=== PATIENT | female | born 1970 | race Asian ===

== ENCOUNTER 2021-05-06 13:53 | Outpatient (REF) | payer MEDICAID, OTHER, SELFPAY ==
--- NOTE | ~2021-05-06 | US_ITS ---
EXAMINATION: US PELVIS CLINICAL INFORMATION: AUB. COMPARISON: Done. TECHNIQUE: Ultrasound of the pelvis is performed using both transabdominal and transvaginal transducers along with Doppler. Transvaginal imaging is performed due to inadequate visualization transabdominally. FINDINGS: Uterus: The uterus is anteverted and measures 8.3 x 4.6 x 5.8 cm. There are some nabothian cysts present in the cervix. The double wall endometrial thickness is prominent at 12 mm. About the left lateral upper body of the uterus, there is a 2.1 x 2.8 x 2.0 cm hyperechoic structure with the appearance of a fibroid which appears to span between the subserosal, myometrial, and subendometrial regions on the provided imaging. Adnexa: There is normal color-flow to the left adnexa. There is no ovarian torsion. There is no pelvic ascites or fluid collection. Status post right oophorectomy. Left ovary measures 4.5 x 3.1 x 3.9 cm. Volume of 29 mL. There is a mildly complex septated cyst present without internal soft tissue component or internal vascularity measuring 3.7 x 2.1 x 2.8 cm in size. US/US pelvic and transvaginal IMPRESSION: Prominent endometrium at 1.2 cm in diameter. Left uterine body 2.7 cm largest dimension fibroid. Mildly complex left ovarian cyst measuring 3.7 cm in largest dimension.
== END 2021-05-06 13:54 | disposition home or self-care (01) ==
LOC: HO.HMGCX 13:53
PROVIDERS: PCP Family Medicine; Visit Provider Family Medicine
DX: N93.9 Abnormal uterine and vaginal bleeding, unspecified (principal)
CPT/HCPCS: 76830; 76856

== ENCOUNTER 2021-05-20 10:57 | Outpatient (REF) | payer MEDICAID, OTHER, SELFPAY ==
--- NOTE | ~2021-05-20 | CT_ITS ---
EXAMINATION: CT ABDOMEN WITHOUT AND WITH CONTRAST CLINICAL INFORMATION: Essential hypertension and hypokalemia. COMPARISON: None TECHNIQUE: Contiguous axial thin section helical images of the abdomen were performed before and after the administration of oral contrast and 85 mL of Omnipaque 350 intravenous contrast. The data set was reformatted in the coronal and sagittal planes and reviewed on an independent workstation. This CT examination was performed using dose optimization techniques as appropriate, variously including the following: *Automated exposure control *Adjustment of mA and/or kV according to patient size (this includes techniques or standardized protocols for targeted exams where dose is matched to indication/reason for exam; i.e. extremities or head) *Use of iterative reconstruction technique DLP: 278 mGy-cm FINDINGS: LUNG BASES: There are atelectatic changes in the left lung base. The heart size is normal. LIVER, GALLBLADDER, AND BILIARY TREE: The liver is normal size, contour and density. No focal lesion or intrahepatic ductal dilatation seen. The gallbladder is unremarkable. PANCREAS: Pancreas normal density and normal size. SPLEEN: Unremarkable. ADRENAL GLANDS AND KIDNEYS: There is a 1.7 cm left adrenal lesion 50 Hounsfield units. The right adrenal gland is normal. BOWEL LOOPS: There is moderate stool seen throughout the colon without distention. The small bowel loops are normal caliber. There is a calcified density in the right lower quadrant question appendicolith versus dense capsule in a small bowel loop. LYMPH NODES: Normal. VASCULAR: Unremarkable. BONES: No lytic or sclerotic process seen. CT/CT abdomen wo/w con IMPRESSION: 1.7 cm left adrenal lesion not benign. Recommend further evaluation with CT adrenal protocol. Moderate constipation. Radiopaque pill in the small bowel versus small appendicolith. Fleischner guidelines were followed.
[2021-05-20] MEDS: iohexoL 350 MG/ML 100 ML INFUS..BTL IV (11:51)
== END 2021-05-20 10:58 | disposition home or self-care (01) ==
LOC: HO.CT 10:57
PROVIDERS: Visit Provider Internal Medicine Nephrology
DX: E87.6 Hypokalemia (principal); I10 Essential (primary) hypertension
CPT/HCPCS: 74170; Q9967

== ENCOUNTER 2021-05-23 15:58 | Outpatient (REF) | payer MEDICAID, OTHER, SELFPAY ==
--- NOTE | ~2021-05-23 | MM_ITS ---
EXAMINATION: MM SCREENING DIGITAL BREAST TOMOSYNTHESIS, BILATERAL CLINICAL INFORMATION: Screening. Asymptomatic. The lifetime risk of breast cancer based on the Tyrer-Cuzick Model is 12.1%. COMPARISON: Mammography: None TECHNIQUE: Digital breast tomosynthesis is performed in both the craniocaudal and mediolateral oblique views along with computer-aided detection (CAD). Synthesized 2D images are generated from the tomosynthesis. FINDINGS: The breasts are heterogeneously dense, which may obscure small masses (ACR BI-RADS breast composition Category c). There are no significant masses, abnormal calcifications, or other abnormalities. MM/MM tomosynthesis screening BI IMPRESSION: No mammographic evidence of malignancy. ASSESSMENT: BI-RADS 1: Negative RECOMMENDATION: Routine annual mammography screening. This patient's information was entered into a reminder system with a target due date for their next mammogram.
== END 2021-05-23 15:59 | disposition home or self-care (01) ==
LOC: HO.MAMMO 15:58
PROVIDERS: Visit Provider Family Medicine
DX: Z12.31 Encounter for screening mammogram for malignant neoplasm of breast (principal)
CPT/HCPCS: 77063; 77067

== ENCOUNTER 2022-04-10 11:42 | Outpatient (REF) | payer MEDICAID, OTHER, SELFPAY ==
[2022-04-10 13:13] LABS: Hematocrit 36.4 % (37.0-47.0); Hemoglobin 12.5 g/dl (12.0-16.0); Mean Corpuscular HGB Conc 34.3 g/dl (31.0-35.0); Mean Corpuscular Hemoglobin 31.6 pg (27.0-33.0); Mean Corpuscular Volume 91.9 fL (80.0-98.0); Mean Platelet Volume 12.1 fL (9.4-12.3); Platelet Count 231 X10*3/uL (160-400); Red Blood Count 3.96 X10*6/uL (4.20-5.50); Red Cell Distribution Width 11.4 % (11.0-16.0); White Blood Count 4.9 X10*3/uL (4.8-10.8)
[2022-04-10 13:27] LABS: Estimated Average Glucose 88 mg/dL; Hemoglobin A1c % 4.7 %
[2022-04-10 14:10] LABS: Syphilis Screen Nonreactive (Nonreactive)
[2022-04-10 16:02] LABS: Alanine Aminotransferase 22 U/L (0-31); Albumin Level 4.3 g/dL (3.5-5.0); Alkaline Phosphatase 56 U/L (39-117); Anion Gap 16 (12-20); Aspartate Amino Transferase 25 U/L (5-31); Bilirubin Direct 0.2 mg/dL (0.0-0.5); Bilirubin Total 0.8 mg/dL (0.0-1.0); Blood Urea Nitrogen 15 mg/dL (9-16); Calcium 9.2 mg/dL (8.4-10.2); Carbon Dioxide 23 mmol/L (22-29); Chloride 103 mmol/L (96-108); Cholesterol 215 mg/dL; Estimated Glomerular Filt Rate > 60; Glucose Random 86 mg/dL (60-115); HDL Cholesterol 52 mg/dL; Iron 157 mcg/dL (30-160); LDL Cholesterol Calculated 148 mg/dl; Percent Iron Saturation 59 % (15-50); Potassium 3.9 mmol/L (3.3-5.1); Sodium 138 mmol/L (135-145); Total Iron Binding Capacity 265 mcg/dL (228-428); Triglycerides 77 mg/dL; Unsaturated Iron Binding 108 ug/dL
[2022-04-10 16:30] LABS: Ferritin 76 ng/mL (10-250); Folate 16.3 ng/mL (> or = 4.0); Free T4 (Free Thyroxine) 1.18 ng/dL (0.71-1.85); Thyroid Stimulating Hormone 1.65 uIU/mL (0.32-4.0); Vitamin B12 488 pg/mL (200-900); Vitamin D 25-OH Total 35.2 ng/mL (>30)
[2022-04-10 16:41] LABS: CT PCR NOT DETECTED (Not Detect.); NG PCR NOT DETECTED (Not Detect.)
[2022-04-13 08:13] LABS: ~HepC Num1 0.21 S/CO (0.00-0.79); ~Hepatitis C Antibody Nonreactive (Nonreactive)
[2022-04-13 08:23] LABS: HIV AB/AG Nonreactive (Nonreactive); HIV Num 1 0.08 S/CO (0.00-0.99)
== END 2022-04-10 11:43 | disposition home or self-care (01) ==
LOC: HO.LAB 11:42
PROVIDERS: PCP Family Medicine; Visit Provider Family Medicine
DX: Z00.00 Encounter for general adult medical examination without abnormal findings (principal); Z11.4 Encounter for screening for human immunodeficiency virus [HIV]; I10 Essential (primary) hypertension
CPT/HCPCS: 0353U; 80048; 80061; 80076; 82306; 82607; 82728; 82746; 83036; 83540; 84439; 84443; 85027; 86780; 86803; 87389

== ENCOUNTER 2022-06-15 11:17 | Outpatient (REF) | payer MEDICAID, OTHER, SELFPAY ==
--- NOTE | ~2022-06-15 | MM_ITS ---
EXAMINATION: MM SCREENING DIGITAL BREAST TOMOSYNTHESIS, BILATERAL CLINICAL INFORMATION: Screening. Asymptomatic. The lifetime risk of breast cancer based on the Tyrer-Cuzick Model is 10%. COMPARISON: Mammography: 05/23/2021 (baseline) TECHNIQUE: Digital breast tomosynthesis is performed in both the craniocaudal and mediolateral oblique views along with computer-aided detection (CAD). Synthesized 2D images are generated from the tomosynthesis. Additional left CC view is provided. FINDINGS: The breasts are heterogeneously dense, which may obscure small masses (ACR BI-RADS breast composition Category c). There are no significant masses, abnormal calcifications, or other abnormalities. No architectural abnormality. The axilla and skin contours are unremarkable. No significant changes. MM/MM tomosynthesis screening BI IMPRESSION: No mammographic evidence of malignancy. ASSESSMENT: BI-RADS 1: Negative RECOMMENDATION: Routine annual mammography screening. This patient's information was entered into a reminder system with a target due date for their next mammogram.
== END 2022-06-15 11:18 | disposition home or self-care (01) ==
LOC: HO.MAMMO 11:17
PROVIDERS: PCP Family Medicine; Visit Provider Family Medicine
DX: Z12.31 Encounter for screening mammogram for malignant neoplasm of breast (principal)
CPT/HCPCS: 77063; 77067

== ENCOUNTER 2022-08-14 13:31 | Outpatient (REF) | payer MEDICAID, OTHER, SELFPAY ==
--- NOTE | ~2022-08-14 | US_ITS ---
EXAMINATION: US PELVIS CLINICAL INFORMATION: Abnormal uterine bleeding. COMPARISON: CT abdomen 05/20/2021, ultrasound pelvis 05/06/2021. TECHNIQUE: Ultrasound of the pelvis is performed using both transabdominal and transvaginal transducers along with Doppler. Transvaginal imaging is performed due to inadequate visualization transabdominally. FINDINGS: Uterus: The uterus is anteverted and measures 8.4 x 4.2 x 6.7 cm. The double wall endometrial thickness is 0.9 mm. A left-sided fundal fibroid present measuring 2.6 x 2.6 x 2.2 cm (previously 2.1 x 2.7 x 2.0 cm). Nabothian cysts are present in the cervix. Adnexa: The right ovary has been removed. The left ovary measures 4.2 x 2.8 x 3.0 cm for a volume of 18.5 mL which includes a 1.9 cm benign ovarian cyst. No free pelvic fluid is seen. US/US pelvic and transvaginal IMPRESSION: 1. A 2.6 cm fundal fibroid is present, slightly larger than prior. 2. Benign left ovarian cyst needs no further followup. 3. The right ovary has been removed.
== END 2022-08-14 13:32 | disposition home or self-care (01) ==
LOC: HO.US 13:31
PROVIDERS: PCP Family Medicine; Visit Provider Family Medicine
DX: N93.9 Abnormal uterine and vaginal bleeding, unspecified (principal)
CPT/HCPCS: 76830; 76856

== ENCOUNTER 2023-05-18 13:30 | Outpatient (REF) | payer MEDICAID, OTHER, SELFPAY ==
[2023-05-18 16:17] LABS: Appearance Urine Cloudy; Color Urine Yellow; Glucose Urine UA Negative (Negative); Leukocyte Esterase Urine Moderate (2+) (Negative); Nitrite Urine Negative (Negative); UMIC TRIGGER UACC YES; Urine Blood Negative (Negative); Urine Ketones Negative (Negative); Urine Protein Negative (Neg-Trace)
[2023-05-18 16:30] LABS: Bacteria Urine Trace (None Seen); Hyaline Casts Urine 0-2 /LPF (0-2); RBC Urine 0-2 /HPF (0-2); UACC Culture Trigger YES
[2023-05-18 16:38] LABS: Hematocrit 36.6 % (37.0-47.0); Hemoglobin 12.6 g/dl (12.0-16.0); Mean Corpuscular HGB Conc 34.4 g/dl (31.0-35.0); Mean Corpuscular Hemoglobin 31.3 pg (27.0-33.0); Mean Platelet Volume 11.7 fL (9.4-12.3); Platelet Count 257 X10*3/uL (160-400); Red Blood Count 4.02 X10*6/uL (4.20-5.50); Red Cell Distribution Width 11.6 % (11.0-16.0); White Blood Count 5.5 X10*3/uL (4.8-10.8)
[2023-05-18 16:54] LABS: Estimated Average Glucose 91 mg/dL; Hemoglobin A1c % 4.8 % (<6.0)
[2023-05-18 17:32] LABS: Creatinine Urine 58.65 mg/dL; Microalbum/Creatinine Ratio Ur 102.3 ug/mg cr (<30)
[2023-05-18 17:54] LABS: Free T4 (Free Thyroxine) 0.96 ng/dL (0.71-1.85); Thyroid Stimulating Hormone 1.29 uIU/mL (0.32-4.0); Vitamin D 25-OH Total 38.1 ng/mL (>30)
[2023-05-18 18:51] LABS: Alanine Aminotransferase 42 U/L (0-31); Albumin Level 4.5 g/dL (3.5-5.0); Alkaline Phosphatase 77 U/L (39-117); Anion Gap 9 (12-20); Aspartate Amino Transferase 36 U/L (5-31); Bilirubin Direct 0.2 mg/dL (0.0-0.5); Bilirubin Total 0.6 mg/dL (0.0-1.0); Blood Urea Nitrogen 11 mg/dL (9-16); Calcium 9.6 mg/dL (8.4-10.2); Carbon Dioxide 33 mmol/L (22-29); Chloride 104 mmol/L (96-108); Cholesterol 240 mg/dL (<200); Estimated Glomerular Filt Rate > 60; Glucose Random 126 mg/dL (60-115); HDL Cholesterol 87 mg/dL (>40); LDL Cholesterol Calculated 138 mg/dL (<100); Potassium 2.9 mmol/L (3.3-5.1); Sodium 143 mmol/L (135-145); Total Protein 7.8 g/dL (6.5-8.0); Triglycerides 75 mg/dL (<150)
== END 2023-05-18 13:31 | disposition home or self-care (01) ==
LOC: HO.HHCL 13:30
PROVIDERS: Visit Provider Family Medicine
DX: I10 Essential (primary) hypertension (principal); R39.9 Unspecified symptoms and signs involving the genitourinary system
CPT/HCPCS: 36415; 80048; 80061; 80076; 81001; 82043; 82306; 82570; 83036; 84439; 84443; 85027; 87086

== ENCOUNTER 2023-05-24 12:59 | Outpatient (REF) | payer MEDICAID, OTHER, SELFPAY ==
[2023-05-24 16:25] LABS: Potassium 3.7 mmol/L (3.3-5.1)
[2023-05-25 12:48] LABS: Follicle Stimulating Hormone 61.5 mIU/mL; Lutenizing Hormone 26.3 mIU/mL
== END 2023-05-24 13:00 | disposition home or self-care (01) ==
LOC: HO.HHCL 12:59
PROVIDERS: Student in an Organized Health Care Education/Training Program; Visit Provider Family Medicine
DX: R39.9 Unspecified symptoms and signs involving the genitourinary system (principal); E87.6 Hypokalemia
CPT/HCPCS: 36415; 83001; 83002; 84132

== ENCOUNTER → 2023-06-17 11:30 | Outpatient (BNV) | payer SELFPAY | PROVIDERS: PCP Family Medicine; Visit Provider Radiology Diagnostic Radiology | DX: Z12.31 Encounter for screening mammogram for malignant neoplasm of breast (principal) | CPT/HCPCS: 77063; 77067 ==

== ENCOUNTER 2023-06-17 11:32 | Outpatient (REF) | payer MEDICAID, OTHER, SELFPAY ==
--- NOTE | ~2023-06-17 | MM_ITS ---
EXAMINATION: MM SCREENING DIGITAL BREAST TOMOSYNTHESIS, BILATERAL CLINICAL INFORMATION: Screening. Asymptomatic. COMPARISON: Mammography: This study is compared with prior exams dating back to TECHNIQUE: Digital breast tomosynthesis is performed in both the craniocaudal and mediolateral oblique views along with computer-aided detection (CAD). Synthesized 2D images are generated from the tomosynthesis. FINDINGS: The breasts are heterogeneously dense, which may obscure small masses (ACR BI-RADS breast composition Category c). There are no significant masses, abnormal calcifications, or other abnormalities. MM/MM tomosynthesis screening BI IMPRESSION: No mammographic evidence of malignancy. ASSESSMENT: BI-RADS BI-RADS 1 - Negative RECOMMENDATION: Routine annual mammography screening. 1 year F/U This examination should not preclude the clinical evaluation of a suspicious palpable abnormality. This patient's information was entered into a reminder system with a target due date for their next mammogram.
== END 2023-06-17 11:33 | disposition home or self-care (01) ==
LOC: HO.MAMMO 11:32
PROVIDERS: PCP Family Medicine; Visit Provider Family Medicine
DX: Z12.31 Encounter for screening mammogram for malignant neoplasm of breast (principal)
CPT/HCPCS: 77063; 77067

== ENCOUNTER 2023-08-30 10:14 | Outpatient (REF) | payer SELFPAY ==
[2023-08-30 12:56] LABS: HBS Num1 > 1000.00 mIU/mL (0-7.99); ~Hepatitis B Surface Antibody REACTIVE (Nonreactive)
[2023-08-31 17:47] LABS: Rubeola IgG (Measles) >300.00 AU/mL
[2023-09-01 23:18] LABS: TS Negative Control Passed; TS Panel A 0; TS Panel B 2; TS Positive Control Passed; TSpotTB Negative (Negative)
== END 2023-08-30 10:15 | disposition home or self-care (01) ==
LOC: HO.HHCL 10:14
PROVIDERS: Visit Provider Internal Medicine
DX: Z02.89 Encounter for other administrative examinations (principal)
CPT/HCPCS: 36415; 86481; 86706; 86735; 86762; 86765

== ENCOUNTER 2024-06-22 11:14 | Outpatient (REF) | payer MEDICAID, OTHER, SELFPAY ==
--- OUTSIDE RECORDS SUMMARY | 2024-06-22 13:54 | XMS_ITS | Clinical Summary ---
Author Organization [facility] Facility Address [address] [place] [id number] Care Team Providers Care Educational Technology Coordinator Name Role Phone Zhanna Hyman DO Primary Care Provider Unava ilable Allergies No known active allergies Medications amLODIPine (NORVASC) 10 MG tablet Take 10 mg by mouth 1 (one) time each day Active valsartan (DIOVAN) 320 MG tablet Take 320 mg by mouth 1 (one) time each day Active spironolactone (Aldactone) 50 MG tablet Take 1 tablet (50 mg total) by mouth 1 (one) time each day 30 tablet 11 07/06/2023 Active Active Problems Problem Noted Date Diagnosed Date Mass of left adrenal gland 06/05/2021 Hyperaldosteronism, not otherwise specified 03/09 Hypertension 11/01/2020 Hypertensive urgency 10/24/2020 Acute hypokalemia 10/24/2020 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 Overview (10/24/2020): Anginal equivalent Shoulder pain <Right side> 10/24/2020 Normocytic normochromic anemia 10/24/2020 Social History Tobacco Use Types Packs/Day Years Used Date Smoking Tobacco: Never Smokeless Tobacco: Never Tobacco Cessation:Counseling Given: No Alcohol Use Standard Drinks/Week Comments Yes 0 (1 standard drink = 0.6 oz pur e alcohol) Comments Unknown Sex and Gender Information Value Date Recorded Sex Assigned at Not on file Legal Sex Female 11:34 AM EDT Gender Identity Not on file Sexual Orientation Not on file Last Filed Vital Signs Vital Sign Reading Time Taken Comments Blood Pressure 132/81 06/04/2022 4:19 PM EDT Pulse 80 06/04/2022 4:19 PM EDT Temperature - - Respiratory Rate - - Oxygen Saturation 99% 11/01/2020 11:55 AM EDT Inhaled Oxygen Concentration - - Weight 69.4 kg (153 lb) 06/04/2022 4:19 PM EDT Height 170.2 cm (5' 7 ) 03/27/2021 2:35 PM EST Body Mass Index 23.96 03/27/2021 2:35 PM EST Plan of Treatment Health Maintenance Due Date Last Done Comments Breast Cancer Screening 1970 Hepatitis B Vaccine (1 of 3 - 19+ 3-dose series) 06/07 Pneumococcal Vaccine: 50+ Years (1 of 2 - PCV) 992 Colorectal Cancer Screening: Annual FOBT 2021 Colorectal Cancer Screening: Colonoscopy 2021 Colorectal Cancer Screening: Sigmoidoscopy 2021 Influenza Vaccine (Season Ended) 2024 Care Teams Educational Technology Coordinator Relationship Specialty Start Date End Date Zhanna Hyman DO PCP - General Family Medicine 11/01/20
--- OUTSIDE RECORDS SUMMARY | 2024-06-22 13:54 | XMS_ITS | Clinical Summary ---
Author Organization [employer] Address [address] [place] [address] 7 [place] [address] Care Team Providers Care Beam Doffer Name Role Phone Zhanna Hyman DO Primary Care Provider [phone] Medications spironolactone (Aldactone) 50 MG tablet Take 50 mg by mouth in the morning. 04/01/2022 Active valsartan (Diovan) 320 MG tabletIndications :Essential hypertension Take 1 tablet (320 mg) by mouth in the morning. 90 tablet 3 05/18/2023 Active amLODIPine (Norvasc) 10 MG tabletIndications :Essential hypertension Take 1 tablet (10 mg) by mouth in the morning. 90 tablet 3 05/18/2023 Active Active Problems Problem Noted Date Diagnosed Date Healthcare maintenance 05/18/2023 Assessment & Plan (05/18/2023 1:50 PM EDT): -pt is allergic to flu vaccine -she declines COVID vaccine -she declines Tdap -encouraged shingrix vaccine -Hep A/B immune -T-spot negative OCT 2020 -PAP nml/HPV neg JULY 2021 -mammo BIRADS 06 JUN 2022->referred for repeat -iFOBT neg APR 2022->check cologuard prior to next visit -fasting labs nml APR 2022 -STI/HIV screening negative APR 2022 SK (seborrheic keratosis) 05/18/2023 Assessment & Plan (05/18/2023 1:44 PM EDT): Continue cryotherapy with derm -f/u w/ [facility] derm as scheduled Renal artery stenosis 06/24/2022 Assessment & Plan (05/18/2023 1:42 PM EDT): -renal doppler with mild R CHRISTY -f/u with renal as scheduled, due next mos Left adrenal mass 06/05/2021 Hyperaldosteronism 03/27/2021 Essential hypertension 11/01/2020 Assessment & Plan (05/18/2023 1:42 PM EDT): BP slightly elevated w/ reported nml home BP readings -cont spironolactone, norvasc and valsartan daily -cont home BP monitoring, advised contact [facility] if readings elevated -Cr/GFR nml APR 2022 with mild urine microalbumin FEB 2021, repeat prior to next visit -s/p optho SEP 2021 at [facility] for repeat in 2 years Resolved Problems Problem Noted Date Diagnosed Date Resolved Date Abnormal uterine bleeding 05/18/2023 Assessment & Plan (05/18/2023 12:32 PM EDT): No recurrent sx -pelvic US w/ larger fundal fibroid and benign L ovarian cyst AUG 2022 -reviewed results w/ pt and -advised contact [facility] if sx recur Multiple nevi 05/18/2023 05/18/2023 UTI symptoms 05/18/2023 09/14/2023 Assessment & Plan (05/18/2023 1:49 PM EDT): Recurrent sx, improved with nocturia, improved with home measures, ?OAB vs related to perimenopausal atrophy -provided reassurance -check UA and urine culture to r/o UTI -consider trial vaginal estrogen if sx recur -advised return to clinic if sx recur Acute hypokalemia 10/24/2020 07/22/2022 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 I have donna torres 12/21/[address] you li ve. Do you have problems with any of the following? None of the above 12/21/2022 Food Insecurity Answer Date Recorded Within the past 12 months, y ou worried that your food would run out before you got money to buy more: Never True 12/21/2022 Within the past 12 months,th e food you bought just didn't last and you didn't have enough money to get more: Never True Transportation Answer Date Recorded In the past 12 months, has l ack of transportation kept you from medical appts, meetings, work or from getting things needed for daily living? No 12/21/2022 Utilities Answer Date Recorded In the past 12 months, has t he electric, gas, oil or water company threatened to shut off services in your home? No 12/21/2022 Depression Answer Date Recorded Patient Health Questionnaire-2 Score 0 07/22/2022 Comments Unknown Sex and Gender Information Value Date Recorded Sex Assigned at Female 01/05/2022 10:39 AM EDT Legal Sex Female 10:39 AM EDT Gender Identity Female 01/05/2022 10:39 AM EDT Sexual Orientation Straight 01/05/2022 10 :39 AM EDT Last Filed Vital Signs Vital Sign Reading Time Taken Comments Blood Pressure 134/88 09/14/2023 1:44 PM EDT Pulse 80 09/14/2023 9:56 AM EDT Temperature 36.1 ??C (96.9 ??F) 09/14/2023 9:56 AM ED T Respiratory Rate 18 09/14/2023 9:56 AM EDT Oxygen Saturation 99% 09/14/2023 9:56 AM EDT Inhaled Oxygen Concentration - - Weight 77.2 kg (170 lb 1.6 oz) 09/14/2023 9:56 A M EDT Height 170.2 cm (5' 7 ) 09/14/2023 9:56 AM EDT Body Mass Index 26.64 09/14/2023 9:56 AM EDT Plan of Treatment Health Maintenance Due Date Last Done Comments CT Colonography 1972 Colonoscopy 1972 Sigmoidoscopy 1972 Alcohol/Substance Use Screening 1984 Family Planning (PISQ) 06/08/1987 Hepatitis B Vaccines (1 of 3 - 19+ 3-dose series) 06/08/1991 Pneumococcal Vaccine: 50+ Years (1 of 1 - PCV) 2022 Zoster Vaccines (1 of 2) 2022 FIT 04/22/2023 04/22/2022 FOBT 04/22/2023 04/22/2022 Depression Screening 07/23/2023 07/22/2022, 07/23/19 23 SDOH Screening 07/23/2023 07/22/2022 COVID-19 Vaccine ( - season) 2023 Influenza Vaccine (#1) 2023 Pap Smear 08/01/2024 08/01/2021 Tobacco Screening 11/24/2024 11/25/2023 Mammogram 06/16/2025 06/17/2023, 06/06, 06/15/2022, Additional history exists Colorectal Cancer Screening 2026 FIT DNA/Cologuard 2026 06/08/2023 Cervical Cancer Screening 08/01/2026 HPV/Cotest 08/01/2026 08/01/2021 Lipid Panel 05/17/2028 05/18/2023, 02/0 05/2022, 02/10/2021 DTaP/Tdap/Td Vaccines (2 - Td or Tdap) 09/13/2033 09/14/2023 RSV Patients and Patients Aged 60 years or older (1 - 1-dose 75+ series) 06/08/2047 HIV Screening Completed 04/10/2022, 02/10/2021 Hepatitis C Screening Completed 04/10/2022, 021 HIB Vaccines Aged Out No longer eligi ble based on patient's age to complete this topic HPV Vaccines Aged Out No longer eligi ble based on patient's age to complete this topic Hepatitis A Vaccines Aged Out No long er eligible based on patient's age to complete this topic IPV Vaccines Aged Out No longer eligi ble based on patient's age to complete this topic Meningococcal Vaccine Aged Out No iban narciso eligible based on patient's age to complete this topic RSV under 20 months Aged Out No longe r eligible based on patient's age to complete this topic Rotavirus Vaccines Aged Out No longer eligible based on patient's age to complete this topic Procedures Procedure Name Priority Date/Time Associated Diagnosis Comments BI MAMMOGRAM SCREENING TOMOSYNTHESIS BILATERAL Routine 06/17/2023 11:50 AM EDT LAB COLOGUARD?? COLON CANCER SCREEN Routine 06/08/2023 9:58 AM EDT Encounter for screening for malignant neoplasm of colon LIPID PANEL, STANDARD Routine 05/18/2023 1:34 PM EDT Essential hypertension FECAL GLOBIN BY IMMUNOCHEMISTRY Routine 04/22/2022 12:00 AM EST HEPATITIS C ANTIBODY REFLEX Routine 04/10/2022 12:27 PM EST HIV ANTIBODY/ANTIGEN ([place] DPH) Routine 04/10/2022 12:27 PM EST HPV MRNA E6/E7 REFLEX TO HPV 16, 18/45 Routine 08/01/2021 10:31 AM EDT THINPREP IMAGING SYSTEM PAP Routine 08/01/2021 10:31 AM EDT from Last 3 Months or Most Recently Relevant to Health Maintenance Results * BI Mammogram Screening Tomosynthesis Bilateral (06/17/2023 11:50 AM EDT) Anatomical Region Laterality Modality Breast Bilateral Mammography 06/17/2023 11:5 0 AM EDT Narrative 07/13/2023 11:04 AM EDT ? [facility] ? [address] ?[place] [address] ? Mammography Report ? Signed ? Patient: Godbout,Oma ?MR#: [id number] ? : 1970 ?Acct:[id number] ? Age/Sex: 53 / F ?ADM Date: 06/17/23 ? Loc: HO.MAMMO ? Attending Dr: Zhanna Hyman DO ? Ordering Physician: Zhanna Hyman DO ?Results: 1N ?? egative ? Date of Service: 06/17/23 ?Follow Up: 1 Year From Orig ?? inal Mammogram ? Procedure(s): MM tomosynthesis screening BI ?? Accession Number(s): [id number] ? cc: Zhanna Hyman DO ? EXAMINATION: ?? MM SCREENING DIGITAL BREAST TOMOSYNTHESIS, BILATERAL ? CLINICAL INFORMATION: ? Screening. Asymptomatic. ? COMPARISON: ?? Mammography: This study is compared with prior exams dating back to ? TECHNIQUE: ?? Digital breast tomosynthesis is performed in both the craniocaudal and ?? mediolateral oblique views along with computer-aided detection (CAD). ?? Synthesized 2D images are generated from the tomosynthesis. ? FINDINGS: ?? The breasts are heterogeneously dense, which may obscure small masses ?? (ACR BI-RADS breast composition Category c). ? There are no significant masses, abnormal calcifications, or other ?? abnormalities. ? MM/MM tomosynthesis screening BI ?? IMPRESSION: ?? No mammographic evidence of malignancy. ? ASSESSMENT: ? BI-RADS BI-RADS 1 - Negative ? RECOMMENDATION: ?? Routine annual mammography screening. ? 1 year F/U ? This examination should not preclude the clinical evaluation of a ?? suspicious palpable abnormality. ? This patient's information was entered into a reminder system with a ?? target due date for their next mammogram. ? Dictated By: ?Marge Fenton MD ? Signed By: ?<Electronically signed by Marge Fenton MD in OV> ? 07/13/23 1100 ? DD/ 1150 ? TD/TT: ? Senior Software Development Manager: ? Procedure Note Diana, Image - 07/13/2023 [facility] [address] [place] [address] Mammography Report Signed Patient: Lizzeth Rodríguez#: [id number] : 1970Acct:[id number] Age/Sex: 53 / FADM Date: 06/17/23 Loc: HO.MAMMO Attending Dr: Zhanna Hyman DO Ordering Physician: Zhanna Hymanults: 1N egative Date of Service: 06/17/23Follow Up: 1 Year From Orig inal Mammogram Procedure(s): MM tomosynthesis screening BI Accession Number(s): [id number] cc: Zhanna Hyman DO EXAMINATION: MM SCREENING DIGITAL BREAST TOMOSYNTHESIS, BILATERAL CLINICAL INFORMATION: Screening. Asymptomatic. COMPARISON: Mammography: This study is compared with prior exams dating back to TECHNIQUE: Digital breast tomosynthesis is performed in both the craniocaudal and mediolateral oblique views along with computer-aided detection (CAD). Synthesized 2D images are generated from the tomosynthesis. FINDINGS: The breasts are heterogeneously dense, which may obscure small masses (ACR BI-RADS breast composition Category c). There are no significant masses, abnormal calcifications, or other abnormalities. MM/MM tomosynthesis screening BI IMPRESSION: No mammographic evidence of malignancy. ASSESSMENT: BI-RADS BI-RADS 1 - Negative RECOMMENDATION: Routine annual mammography screening. 1 year F/U This examination should not preclude the clinical evaluation of a suspicious palpable abnormality. This patient's information was entered into a reminder system with a target due date for their next mammogram. Dictated By: Marge Fenton MD Signed By: <Electronically signed by Marge Fenton MD in OV> 07/13/23 1100 DD/ 1150 TD/TT: Senior Software Development Manager: us Zhanna Hyman DO IMG BI PROCEDURES Final Resu lt * Cologuard?? colon cancer screening (06/08/2023 9:58 AM EDT) Cologuard Result Negative Negative 06/13/19 5:06 PM EDT [facility] (CLIA #:[id number]) Comment: NEGATIVE TEST RESULT. A negative Cologuard result indicates a low likelihood that a colorectal cancer (CRC) or advanced adenoma (adenomatous polyps with more advanced pre-malignant features) ??is present. The chance that a person with a negative Cologuard test has a colorectal cancer is less than 1 in 1500 (negative predictive value >99.9%) or has an ??advanced adenoma is less than ??5.3% (negative predictive value 94.7%). These data are based on a prospective cross-sectional study of 10,000 individuals at average risk for colorectal cancer who were screened with both Cologuard and colonoscopy. (Juana Sánchez al, N Engl J Med 2014;370(14):1286- 1297) The normal value (reference range) for this assay is negative. COLOGUARD RE-SCREENING RECOMMENDATION: Periodic colorectal cancer screening is an important part of preventive healthcare for asymptomatic individuals at average risk for colorectal cancer. ??Following a negative Cologuard result, the [place] Cancer Society and U.S. Multi-Society Task Force screening guidelines recommend a Cologuard re-screening interval of 3 years. References: [place] Cancer Society Guideline for Colorectal Cancer Screening: https://www.cancer.org/cancer/twkyf-xdynmo-tvnidj/mjtmodfvw-kxzixayyh-uirsjpj/ac s-rec ommendations.html.; Dariel DK, Trung CR, Aubree MedinaK, Colorectal Cancer Screening: Recommendations for Physicians and Patients from the U.S. Multi-Society Task Force on Colorectal Cancer Screening , Am J Gastroenterology 2017; 112:1550-4036. TEST DESCRIPTION: Composite algorithmic analysis of stool DNA-biomarkers with hemoglobin immunoassay. ?? Quantitative values of individual biomarkers are not reportable and are not associated with individual biomarker result reference ranges. Cologuard is intended for colorectal cancer screening of adults of either sex, 45 years or older, who are at average-risk for colorectal cancer (CRC). Cologuard has been approved for use by the U.S. FDA. The performance of Cologuard was established in a cross sectional study of average-risk adults aged 50-84. Cologuard performance in patients ages 45 to 49 years was estimated by sub-group analysis of near-age groups. Colonoscopies performed for a positive result may find as the most clinically significant lesion: colorectal cancer [4.0%], advanced adenoma (including sessile serrated polyps greater than or equal to 1cm diameter) [20%] or non- advanced adenoma [31%]; or no colorectal neoplasia [45%]. These estimates are derived from a prospective cross-sectional screening study of 10,000 individuals at average risk for colorectal cancer who were screened with both Cologuard and colonoscopy. (Juana Sánchez al, N Engl J Med 2014;370(14):7199-5636.) Cologuard may produce a false negative or false positive result (no colorectal cancer or precancerous polyp present at colonoscopy follow up). A negative Cologuard test result does not guarantee the absence of CRC or advanced adenoma (pre-cancer). The current Cologuard screening interval is every 3 years. ([place] Cancer Society and U.S. Multi-Society Task Force). Cologuard performance data in a 10,000 patient pivotal study using colonoscopy as the reference method can be accessed at the following location: www.[employer].Play Meg[employer]one/results. Additional description of the Cologuard test process, warnings and precautions can be found at www.[employer]rd.com. Stool specimen (specimen) 06/08/2023 9:58 AM EDT 06/09/2023 2:31 PM EDT Zhanna Hyman DO LAB MOLECULAR DIAGNOSTICS OR DERABLES Final Result [facility] (CLIA #:[id number]) [place] [address], * (ABNORMAL) Lipid Panel, Standard (05/18/2023 1:34 PM EDT) Triglycerides 75 <150 mg/dL [facility] Comment:Desirable Triglyceri de: less than 150 mg/dLBorderline High Triglyceride 150-199 mg/dLHigh Triglyceride: 200-499 mg/dLVery High Triglyceride: greater than or equal to 5OO mg/dL Cholesterol 240(H) <200 mg/dL [facility] Comment:Desirable Cholestero l: less than 200 mg/dLBorderline High Cholesterol: 200-239 mg/dLHigh Cholesterol: greater than 239 mg/dL LDL Cholesterol Calculated 138(H) <100 mg/dL [facility] Comment:Desirable LDL: less than 100 mg/dLNear Optimal/Above Optimal LDL: 110- 129 mg/dLBorderline High LDL: 130-159 mg/dLHigh LDL: 160-189 mg/dLVery High LDL: greater than or equal to 190 mg/dL HDL Cholesterol 87 >40 mg/dL [facility] Comment:Desirable HDL: great er than 40 mg/dL Note: This HDL assay may give artificially low results in patients with liver disease. Blood Venous blood specimen / Unknown 05/18/2023 1:34 PM EDT 05/18/2023 4:06 PM EDT Zhanna Hyman DO LAB BLOOD ORDERABLES Final R esult [facility] [address] [place] [address] [phone] * Fecal Globin by Immunochemistry (04/22/2022 12:00 AM EST) Fecal Globin By Immunochemistry SEE NOTE Exam18 [place] [facility] Comment: ??FECAL GLOBIN BY IMMUNOCHEMISTRY ?Micro Number: ?[id number] ??Test Status: ? Final ??Specimen Source: ?? Not given ??Specimen Quality: ??Adequate ??Fecal Globin: ?Not Detected 04/22/2022 04/28/2022 10: 11 PM EST Narrative [facility] - 04/29/2022 10:56 AM EST FASTING: UNKNOWN Zhanna Hyman DO LAB BODY FLUIDS AND STOOLS O RDERABLES Final Result Performing Organization Address City/[facility] Co de Phone Number [employer] [address] [place] [address], [place] [address] Exam18 [place] [facility] [address] [place] [address], (Nl2) [place] [address] * Hepatitis C Antibody Reflex (04/10/2022 12:27 PM EST) Pathologist [facility] Hepatitis C Antibody Nonreactive Nonreactive [facility] Comment:Antibodies to HCV no t detected; does not exclude early acuteHCV infection. 04/10/2022 12:2 7 PM EST 04/10/2022 12:27 PM EST [facility] External Provider LAB BLO OD ORDERABLES Final Result Performing Organization Address City/[facility]/ZIP Co de Phone Number [facility] [address] [place] [address] [phone] * HIV Ab/Ag (DEVANTE ARMENDARIZ) (04/10/2022 12:27 PM EST) Pathologist [facility] HIV AB/AG Nonreactive Nonreactive [facility] Comment:HIV-1 p24 Ag and/or HIV-1/HIV-2 Ab not detected.A test result that is nonreactive does not exclude thepossibility of exposure to or infection with HIV-1 and/orHIV-2. Nonreactive results in this assay for individualswith prior exposure to HIV-1 and/or HIV-2 may be due toantigen and antibody levels that are below the limit ofdetection of this assay.The Cervantes Reel Winder HIV Ag/Ab Combo assay result andsupplemental assay results should be interpreted inconjunction with the patient's clinical presentation,history and other laboratory results. If the results areinconsistent with clinical evidence, additional testing issuggested to confirm the result. 04/10/2022 12:2 7 PM EST 04/10/2022 12:27 PM EST us [facility] External Provider LAB BLO OD ORDERABLES Final Result [facility] [address] [place] [address] [phone] * THINPREP TIS PAP (08/01/2021 10:31 AM EDT) Clinical Information: None given [facility] COMMENT SEE COMMENT [facility] Comment: EXPLANATORY NOTE: ? The Pap is a screening test for cervical cancer. It is ?? not a diagnostic test and is subject to false negative ?? and false positive results. It is most reliable when a ?? satisfactory sample, regularly obtained, is submitted ?? with relevant clinical findings and history, and when ?? the Pap result is evaluated along with historic and ?? current clinical information. ?? COMMENT: SEE COMMENT [facility] Comment: This case could not be evaluated with computer assisted technology. The slide was manually screened according to routine procedures. Seamer : SEE COMMENT [facility] Comment: WAC, CT(ASCP) CT screening location: [address] ??[address] Interpretation/R esult: Negative for intraepithelial lesion or malignancy. [facility] LMP: NONE GIVEN [facility] Prev. BX: NONE GIVEN [facility] Prev. PAP: NONE GIVEN [facility] SOURCE: None given [facility] Statement Of Adequacy: SEE COMMENT [facility] Comment: Satisfactory for evaluation. Endocervical/transformation zone component present. Partially obscuring inflammation Age and/or menstrual status not provided 08/01/2021 10:3 1 AM EDT Zhanna Hyman DO LAB PATHOLOGY ORDERABLES Fin al Result Performing Organization Address [facility] Co de Phone Number [facility] [address] * HPV mRNA E6/E7 REFLEX TO HPV 16, 18/45 (08/01/2021 10:31 AM EDT) HPV nRNA E6/E7 Not Detected Not Detected [facility] Comment: Methodology: Tooth Cutter Contact Wheel-Mediated Amplification This assay detects E6/E7 viral messenger RNA (mRNA) from 14 high-risk HPV types (16,18,31,33,35,39,45,51,52,56,58,59,66,68). ? Cervical sources are required for HPV testing. If a vaginal source from a patient who has had a total hysterectomy with removal of cervix was ?? submitted, please contact the testing laboratory for alternative testing options. ?? For additional information, please refer to http://education.iTw[employer]ie/faq/EPR636t1 (This link if provided for information/ educational purposes only.) 08/01/2021 10:3 1 AM EDT Zhanna Hyman DO LAB CYTOLOGY ORDERABLES Yasmin l Result Performing Organization Address [facility] de Phone Number [facility] [address] from Last 3 Months or Most Recently Relevant to Health Maintenance Insurance [employer] FULL Care Teams Beam Doffer Relationship Specialty Start Date End Date Zhanna Hyman DO [address] [place] [phone] PCP - General Family Medicine 11/13/20
--- OUTSIDE RECORDS SUMMARY | 2024-06-22 13:54 | XMS_ITS | Encounter Summary ---
Author Organization [employer] Address [address] [place] [address] [address] [place] [address] Care Team Providers Care Fiberglass Dowel Drawing Operator Name Role Phone Zhanna Hyman DO Primary Care Provider [phone] Encounter Details Date Type Department Care Team (Late st Contact Info) Description 04/21/2022 Orders Only [facility] [address] [place], [place] [phone] Zhanna Cardoza LPN Social History Tobacco Use Types Packs/Day Years Used Date Smoking Tobacco: Never Assessed Comments Unknown Sex and Gender Information Value Date Recorded Sex Assigned at Female 01/05/2022 10:39 AM EDT Legal Sex Female 10:39 AM EDT Gender Identity Female 01/05/2022 10:39 AM EDT Sexual Orientation Straight 01/05/2022 10 :39 AM EDT documented as of this encounter Plan of Treatment Not on file documented as of this encounter Visit Diagnoses Not on filedocumented in this encounter Care Teams Fiberglass Dowel Drawing Operator Relationship Specialty Start Date End Date Zhanna Hyman DO [address] [place] [phone] PCP - General Family Medicine 11/13/20 documented as of this encounter
--- OUTSIDE RECORDS SUMMARY | 2024-06-22 13:54 | XMS_ITS | Encounter Summary ---
Author Organization [facility] Address [address] [facility] [address] [place] [address] Phone Care Team Providers Care Career Coordinator Name Role Phone Zahnna Hyman DO Primary Care Provider Unava ilable Encounter Details Date Type Department Care Team (Late st Contact Info) Description 06/12/2021 Telephone [facility] [address] [facility] [address] [place] [address] Reji Dubon MD [address] [facility] [address] [place] [address] Social History Tobacco Use Types Packs/Day Years Used Date Smoking Tobacco: Never Smokeless Tobacco: Never Alcohol Use Standard Drinks/Week Comments Yes 0 (1 standard drink = 0.6 oz pur e alcohol) Comments Unknown Sex and Gender Information Value Date Recorded Sex Assigned at Not on file Legal Sex Female 11:34 AM EDT Gender Identity Not on file Sexual Orientation Not on file documented as of this encounter Miscellaneous Notes * Telephone Encounter - Gracie Grover - 06/12/2021 1:43 PM EDT Pt called, the pharmacy is saying they never received the script for spironolactone. Please resend to [facility] pharmacy Thank you documented in this encounter Plan of Treatment Not on file documented as of this encounter Visit Diagnoses Not on filedocumented in this encounter Care Teams Career Coordinator Relationship Specialty Start Date End Date Zhanna Hyman DO PCP - General Family Medicine 11/01/20 documented as of this encounter
== END 2024-06-22 11:15 | disposition home or self-care (01) ==
LOC: HO.MAMMO 11:14
PROVIDERS: PCP Family Medicine; Visit Provider Family Medicine
DX: Z12.31 Encounter for screening mammogram for malignant neoplasm of breast (principal)
CPT/HCPCS: 77063; 77067

== ENCOUNTER → 2024-06-22 11:30 | Outpatient (BNV) | payer SELFPAY | PROVIDERS: PCP Family Medicine; Visit Provider Internal Medicine | DX: Z12.31 Encounter for screening mammogram for malignant neoplasm of breast (principal) | CPT/HCPCS: 77063; 77067 ==

== ENCOUNTER → 2024-08-10 13:00 | Outpatient (BNV) | payer SELFPAY | PROVIDERS: PCP Family Medicine; Visit Provider Internal Medicine | DX: R92.331 Mammographic heterogeneous density, right breast (principal) | CPT/HCPCS: 77061; 77065 ==

== ENCOUNTER 2024-08-10 13:01 | Outpatient (REF) | payer SELFPAY ==
--- NOTE | ~2024-08-10 | MM_ITS ---
EXAMINATION: MM DIAGNOSTIC DIGITAL BREAST TOMOSYNTHESIS, RIGHT CLINICAL INFORMATION: Call back from screening for asymmetry in the superior right breast on MLO view. COMPARISON: Mammography: [facility] on PACS TECHNIQUE: Digital breast tomosynthesis is performed in both the craniocaudal and mediolateral oblique views along with computer-aided detection (CAD). Synthesized 2D images are generated from the tomosynthesis. FINDINGS: The breasts are heterogeneously dense, which may obscure small masses (ACR BI-RADS breast composition Category c). Previously seen asymmetry in the superior right breast posterior depth on MLO view does not persist on additional imaging projections and likely represented overlapping breast tissue. There are no significant masses, abnormal calcifications, or other abnormalities. MM/MM tomosynthesis added views R IMPRESSION: No mammographic evidence of malignancy. ASSESSMENT: BI-RADS BI-RADS 1 - Negative RECOMMENDATION: 1 year F/U Results were provided to the patient at time of visit by the technologist. This patient's information was entered into a reminder system with a target due date for their next mammogram. Electronically signed by: Kena Cutler DO 08/10/2024 01:25 PM EDT
--- OUTSIDE RECORDS SUMMARY | 2024-08-10 15:06 | XMS_ITS | Clinical Summary ---
Author Organization [facility] Facility Address [address] [place] [address] Care Team Providers Care Vice President Consulting Services Name Role Phone Zhanna Hyman DO Primary [...] Influenza Vaccine (Season Ended) 2024 Care Teams Vice President Consulting Services Relationship Specialty Start Date End Date Zhanna Hyman DO PCP - General Family Medicine 11/01/20
== END 2024-08-10 13:02 | disposition home or self-care (01) ==
LOC: HO.MAMMO 13:01
PROVIDERS: PCP Family Medicine; Visit Provider Family Medicine
DX: N64.89 Other specified disorders of breast (principal)
CPT/HCPCS: 77061; 77065

== ENCOUNTER 2024-11-10 11:45 | Outpatient (REF) | payer MEDICAID, SELFPAY ==
--- OUTSIDE RECORDS SUMMARY | 2024-11-10 10:30 | XMS_ITS | Encounter Summary ---
Author Organization [employer] Address [address] [place] [address] [address] [place] [address] Care Team Providers Care Chief Internal Auditor Name Role Phone Zhanna Hyman DO Primary Care Provider [phone] Encounter Details Date Type Department Care Team ([facility] st Contact Info) Description 11/10/2024 10:30 AM EDT Office Visit [facility] [address] [place], [place] [phone] Zhanna Hyman DO [address] [place], [place] [phone] Essential hypertension (Primary Dx); Renal artery stenosis (CMS/HCC); Elevated LFTs; Healthcare maintenance; Dietary counseling; Exercise counseling; Menopausal symptoms; Overactive bladder; Hair loss Social History Tobacco Use Types Packs/Day Years Used Date Smoking Tobacco: Never Passive Smoke Exposure: Never Smokeless Tobacco: Never Alcohol Use Standard Drinks/Week Comments Never 0 (1 standard drink = 0.6 oz pur e alcohol) Depression Answer Date Recorded Patient Health Questionnaire-9 Score 1 11/10/2024 Patient Health Questionnaire-9 Score 1 11/10/2024 Last PHQ-9: Questionnaire Data Not on file 0 11/10/2024 Housing Stability Answer Date Recorded What is [...] Date Recorded Patient Health Questionnaire-2 Score 0 11/10/2024 Comments Unknown Sex and Gender Information Value Date Recorded Sex Assigned at Female 01/05/2022 10:39 AM EDT Legal Sex Female 10:39 AM EDT Gender Identity Female 01/05/2022 10:39 AM EDT Sexual Orientation Straight 01/05/2022 10 :39 AM EDT documented as of this encounter Last Filed Vital Signs Vital Sign Reading Time Taken Comments Blood Pressure 142/90 11/10/2024 10:52 AM EDT Pulse 72 11/10/2024 10:52 AM EDT Temperature 36.9 C (98.5 F) 11/10/2024 10:52 AM EDT Respiratory Rate 20 11/10/2024 10:52 AM EDT Oxygen Saturation 97% 11/10/2024 10:52 AM EDT Inhaled Oxygen Concentration - - Weight 76.8 kg (169 lb 4 oz) 11/10/2024 10:52 AM EDT Height 170.2 cm (5' 7 ) 11/10/2024 10:52 AM EDT Body Mass Index 26.51 11/10/2024 10:52 AM EDT documented in this encounter Functional Status * Over the past 2 weeks, how often have you been bothered by any of the following problems? Question Answer Date of Assessment Author Patient Health Questionnaire -2 Score 0 11/10/2024 10:55 AM EDT Kira Bello MA * Little interest or pleasure in doing things Answer Date of Assessment Author Not at all 11/10/2024 10:55 AM EDT Kira Bello MA * Feeling down, depressed, or hopeless Answer Date of Assessment Author Not at all 11/10/2024 10:55 AM EDT Kira Bello MA * Trouble falling or staying asleep, or sleeping too much Answer Date of Assessment Author Not at all 11/10/2024 10:55 AM Kira Colby [place] * Feeling tired or having little energy Answer Date of Assessment Author Several days 11/10/2024 10:55 AM Kira Colby [place] * Poor appetite or overeating Answer Date of Assessment Author Not at all 11/10/2024 10:55 AM Kira Colby [place] * Feeling bad about yourself - or that you are a failure or have let yourself or your family down Answer Date of Assessment Author Not at all 11/10/2024 10:55 AM Kira Colby [place] * Trouble concentrating on things, such as reading the newspaper or watching television Answer Date of Assessment Author Not at all 11/10/2024 10:55 AM Kira Colby MA * Moving or speaking so slowly that other people could have noticed? Or the opposite - being so fidgety or restless that you have been moving around a lot more than usual. Answer Date of Assessment Author Not at all 11/10/2024 10:55 AM Kira Colby MA * Thoughts that you would be better off or hurting yourself in some way Answer Date of Assessment Author Not at all 11/10/2024 10:55 AM Kira Colby MA * Patient Health Questionnaire-9 Score Answer Date of Assessment Author 1 11/10/2024 10:55 AM Kira Colby MA * How difficult have these problems made it for you to do your work, take care of things at home, or get along with other people? Answer Date of Assessment Author Not difficult at all 11/10/2024 10:55 AM Kira Jay MA * Over the last 2 weeks, how often have you been bothered by any of the following problems? Question Answer Date of Assessment Author Feeling nervous, anxious, or on edge 0 11/10/2024 10:56 AM Kira Colby MA Not being able to stop or co ntrol worrying 0 11/10/2024 10:56 AM EDT Kira Bello MA Worrying too much about diff erent things 0 11/10/2024 10:56 AM EDT Kira Bello MA Trouble relaxing 0 11/10/2024 10:56 AM EDT Kira Bello MA Being so restless that it is hard to sit still 0 11/10/2024 10:56 AM EDT Kira Bello MA Becoming easily annoyed or irritable 1 11/10/2024 10:56 AM EDT Kira Bello MA Feeling afraid as if somethi ng awful might happen 0 11/10/2024 10:56 AM EDT Kira Bello MA CONNER-7 Total Score 1 11/10/2024 10:56 AM EDT Kira Bello MA documented as of this encounter Plan of Treatment Upcoming Encounters Date Type Department Care Team (Late st Contact Info) Description 11/24/2024 10:30 AM EDT Office Visit [facility] [address] [place] [address] Sydnee Duran MD [address] [place] [address] Scheduled Orders Name Type Priority Associated Diagnoses Orde r Schedule T4, Free Lab Routine Essential hypertension Renal artery stenosis (CMS/HCC) Elevated LFTs Healthcare maintenance Dietary counseling Exercise counseling Menopausal symptoms Overactive bladder Hair loss Expected: 11/10/2024 (Approximate), Expires: 11/10/2025 Vitamin D, 25-Hydroxy, Total, Immunoassay Lab Routine Essential hypertension Renal artery stenosis (CMS/HCC) Elevated LFTs Healthcare maintenance Dietary counseling Exercise counseling Menopausal symptoms Overactive bladder Hair loss Expected: 11/10/2024 (Approximate), Expires: 11/10/2025 Lipid Panel, Standard Lab Routine Essential hypertension Renal artery stenosis (CMS/HCC) Elevated LFTs Healthcare maintenance Dietary counseling Exercise counseling Menopausal symptoms Overactive bladder Hair loss Expected: 11/10/2024 (Approximate), Expires: 11/10/2025 TSH Lab Routine Essential hypertension Renal artery stenosis (CMS/HCC) Elevated LFTs Healthcare maintenance Dietary counseling Exercise counseling Menopausal symptoms Overactive bladder Hair loss Expected: 11/10/2024 (Approximate), Expires: 11/10/2025 Hepatic Function Panel Lab Routine Essential hypertension Renal artery stenosis (CMS/HCC) Elevated LFTs Healthcare maintenance Dietary counseling Exercise counseling Menopausal symptoms Overactive bladder Hair loss Expected: 11/10/2024 (Approximate), Expires: 11/10/2025 Hemoglobin A1c Lab Routine Essential hypertension Renal artery stenosis (CMS/HCC) Elevated LFTs Healthcare maintenance Dietary counseling Exercise counseling Menopausal symptoms Overactive bladder Hair loss Expected: 11/10/2024 (Approximate), Expires: 11/10/2025 Basic Metabolic Panel Lab Routine Essential hypertension Renal artery stenosis (CMS/HCC) Elevated LFTs Healthcare maintenance Dietary counseling Exercise counseling Menopausal symptoms Overactive bladder Hair loss Expected: 11/10/2024 (Approximate), Expires: 11/10/2025 CBC Lab Routine Essential hypertension Renal artery stenosis (CMS/HCC) Elevated LFTs Healthcare maintenance Dietary counseling Exercise counseling Menopausal symptoms Overactive bladder Hair loss Expected: 11/10/2024, Expires: 11/10/2025 Albumin, Random Urine W/Creatinine Lab Routine Essential hypertension Renal artery stenosis (CMS/HCC) Elevated LFTs Healthcare maintenance Dietary counseling Exercise counseling Menopausal symptoms Overactive bladder Hair loss Expected: 11/10/2024 (Approximate), Expires: 11/10/2025 Chlamydia/N. Gonorrhoeae RNA, TMA, Urogenitial Microbiology Routine Essential hypertension Renal artery stenosis (CMS/HCC) Elevated LFTs Healthcare maintenance Dietary counseling Exercise counseling Menopausal symptoms Overactive bladder Hair loss Ordered: 11/10/2024 HIV-1/2 Antigen and Antibodies, Fourth Generation, with Reflexes Lab Routine Essential hypertension Renal artery stenosis (CMS/HCC) Elevated LFTs Healthcare maintenance Dietary counseling Exercise counseling Menopausal symptoms Overactive bladder Hair loss Expected: 11/10/2024 (Approximate), Expires: 11/10/2025 Hepatitis C Antibody with Reflex to HCV, RNA, Quantitative, Real-Time PCR Lab Routine Essential hypertension Renal artery stenosis (CMS/HCC) Elevated LFTs Healthcare maintenance Dietary counseling Exercise counseling Menopausal symptoms Overactive bladder Hair loss Expected: 11/10/2024, Expires: 11/10/2025 RPR (Monitor) with Reflex to Titer Lab Routine Essential hypertension Renal artery stenosis (CMS/HCC) Elevated LFTs Healthcare maintenance Dietary counseling Exercise counseling Menopausal symptoms Overactive bladder Hair loss Expected: 11/10/2024, Expires: 11/10/2025 FSH Lab Routine Essential hypertension Renal artery stenosis (CMS/HCC) Elevated LFTs Healthcare maintenance Dietary counseling Exercise counseling Menopausal symptoms Overactive bladder Hair loss Expected: 11/10/2024, Expires: 11/10/2025 LH Lab Routine Essential hypertension Renal artery stenosis (CMS/HCC) Elevated LFTs Healthcare maintenance Dietary counseling Exercise counseling Menopausal symptoms Overactive bladder Hair loss Expected: 11/10/2024 (Approximate), Expires: 11/10/2025 documented as of this encounter Visit Diagnoses Diagnosis Essential hypertension- Primary Unspecified essential hypertension Renal artery stenosis (CMS/HCC) Atherosclerosis of renal artery Elevated LFTs Other abnormal blood chemistry Healthcare maintenance Dietary counseling Dietary surveillance and counseling Exercise counseling Menopausal symptoms Symptomatic menopausal or female climacteric states Overactive bladder Hypertonicity of bladder Hair loss Unspecified alopecia documented in this encounter Additional Health Concerns Assessment Noted Time PHQ-9 Depression Total Score: 1 11/11/19 25 10:55 AM EDT documented as of this encounter Care Teams Chief Internal Auditor Relationship Specialty Start Date End Date Zhanna Hyman DO [address] [place] [id number] PCP - General Family Medicine 11/13/20 documented as of this encounter
--- OUTSIDE RECORDS SUMMARY | 2024-11-10 12:34 | XMS_ITS | Clinical Summary ---
Author Organization [facility] Facility Address [address] [place] [address] Care Team Providers Care Food Service Associate Name Role Phone Zhanna Hyman DO Primary [...] Colorectal Cancer Screening: Sigmoidoscopy 2021 Influenza Vaccine (#1) 2024 Care Teams Food Service Associate Relationship Specialty Start Date End Date Zhanna Hyman DO PCP - General Family Medicine 11/01/20
--- OUTSIDE RECORDS SUMMARY | 2024-11-10 12:34 | XMS_ITS | Encounter Summary ---
Author Organization [employer] Address [address] [place] [address] [address] [place] [address] Care Team Providers Care Senior Account Director Name Role Phone Zhanna Hyman DO Primary Care Provider [phone] Encounter Details Date Type Department Care Team (Late st Contact Info) Description 04/21/2022 Orders Only [facility] [address] [place], [place] [phone] Zhanna Cardoza LPN Social History Tobacco Use [...] Description 11/24/2024 10:30 AM EDT Office Visit [facility] [address] [place] [address] Sydnee Duran MD [address] [place] [address] documented as of this encounter Visit Diagnoses Not on filedocumented in this encounter Care Teams Senior Account Director Relationship Specialty Start Date End Date Zhanna Hyman DO [address] [place], [place] [phone] PCP - General Family Medicine 11/13/20 documented as of this encounter
--- OUTSIDE RECORDS SUMMARY | 2024-11-10 12:34 | XMS_ITS | Clinical Summary ---
Author Organization [employer] Address [address] [place] [address] [address] [place] [address] Care Team Providers Care Jumpbasting Canvas Baster Name Role Phone Zhanna Hyman DO Primary Care Provider [phone] Allergies No known active allergies Medications spironolactone (Aldactone) 50 MG tablet Take [...] EDT): Continue cryotherapy with derm -f/u w/ [facility] derm as scheduled Renal artery stenosis 06/24/2022 [...] daily -cont home BP monitoring, advised contact [facility] if readings elevated -Cr/GFR nml APR 2022 with mild urine microalbumin FEB 2021, repeat prior to next visit -s/p optho SEP 2021 at [facility] for repeat in 2 years Resolved Problems Problem Noted Date Diagnosed Date Resolved Date Abnormal uterine bleeding 05/18/2023 Assessment & Plan (05/18/2023 12:32 PM EDT): No recurrent sx -pelvic US w/ larger fundal fibroid and benign L ovarian cyst AUG 2022 -reviewed results w/ pt and -advised contact [facility] if sx recur Multiple nevi 05/18/2023 05/18/2023 [...] Overview (07/22/2022): Anginal equivalent Hypertensive urgency 10/24/2020 023 Normocytic normochromic anemia 10/24/2020 07/22/2022 Pain in right shoulder 10/24/202007/22 Encounters Date Type Department Care Team Description 11/10/2024 10:30 AM EDT Office Visit [address] [address] Zhanna Hyman DO Essential hypertension (Primary Dx); Renal artery stenosis (CMS/HCC); Elevated LFTs; Healthcare maintenance; Dietary counseling; Exercise counseling; Menopausal symptoms; Overactive bladder; Hair loss 11/10/2024 Travel 11/01/[address] [address] Zhanna Hyman DO Chart Prep 09/28/[address] [address] Zhanna Hyman DO Recall Letter (Recall Letter sent 09/28/24.) 08/10/2024 Orders Only [address] [address] Zhanna Hyman DO from Last 3 Months Immunizations Immunization Administration Dates Next Due Tdap 09/14/2023 Social History Tobacco Use Types Packs/Day Years Used Date Smoking Tobacco: Never Passive Smoke Exposure: Never Smokeless Tobacco: Never Tobacco Cessation:Counseling Given: Not Answered Alcohol Use Standard Drinks/Week Comments Never 0 [...] Mass Index 26.51 11/10/2024 10:52 AM EDT Plan of Treatment Upcoming Encounters Date Type Department Care Team (Late st Contact Info) Description 11/24/2024 10:30 AM EDT Office Visit [facility] [address] [place] [address] Sydnee Duran MD [address] [place] [address] Health Maintenance Due Date Last Done Comments CT Colonography 1970 Colonoscopy 1970 Sigmoidoscopy 1970 Disability Screening 1970 Family Planning (PISQ) 06/08/1987 Hepatitis B Vaccines (1 of 3 - 19+ 3-dose series) 06/08/1991 Pneumococcal Vaccine: 50+ Years (1 of 1 - PCV) 2022 Zoster Vaccines (1 of 2) 2022 FIT 04/22/2023 04/22/2022 SDOH Screening 07/23/2023 07/22/2022 FOBT 2024 06/08/2023, 04/22/2022 COVID-19 Vaccine ( - season) 2024 Influenza Vaccine (#1) 2024 Mammogram 06/22/2025 06/22/2024, 06/06, 06/15/2022, Additional history exists Alcohol/Substance Use Screening 11/10/2025 11/10/2024 Depression Screening 11/10/2025 11/10/2024, 11/11/19 Tobacco Screening 11/10/2025 11/10/2024 Colorectal Cancer Screening 2026 FIT DNA/Cologuard 2026 06/08/2023 Cervical Cancer Screening 08/01/2026 HPV/Cotest 08/01/2026 08/01/2021 Pap Smear 08/01/2026 08/01/2021 Lipid Panel 05/17/2028 05/18/2023, 0205/2022, 02/10/2021 DTaP/Tdap/Td Vaccines (2 - Td or [...] patient's age to complete this topic Meningococcal B Vaccine Aged Out No l onger eligible based on patient's age to complete this topic Meningococcal Vaccine Aged Out No ibna narciso eligible based on patient's age to complete this topic RSV under 20 months Aged Out No longe r eligible based on patient's age to complete this topic Rotavirus Vaccines Aged Out No longer eligible based on patient's age to complete this topic Procedures Procedure Name Priority Date/Time Associated Diagnosis Comments BI MAMMOGRAM DIAGNOSTIC TOMOSYNTHESIS ADDED VIEW RIGHT Routine 08/10/2024 1:03 PM EDT BI MAMMOGRAM SCREENING TOMOSYNTHESIS BILATERAL Routine 06/22/2024 11:30 AM EDT LAB COLOGUARD COLON CANCER SCREEN Routine 06/08/2023 9:58 AM EDT Encounter for screening for malignant neoplasm of colon LIPID PANEL, STANDARD Routine 05/18/2023 1:34 PM EDT Essential hypertension FECAL GLOBIN BY IMMUNOCHEMISTRY Routine 04/22/2022 12:00 AM EST HEPATITIS C ANTIBODY REFLEX Routine 04/10/2022 12:27 PM EST HIV ANTIBODY/ANTIGEN ([facility]) Routine 04/10/2022 12:27 PM EST HPV MRNA E6/E7 REFLEX TO HPV 16, 18/45 Routine 08/01/2021 10:31 AM EDT THINPREP IMAGING SYSTEM PAP Routine 08/01/2021 10:31 AM EDT from Last 3 Months or Most Recently Relevant to Health Maintenance Results * BI Mammogram Diagnostic Tomosynthesis added right (08/10/2024 1:03 PM EDT) Anatomical Region Laterality Modality Breast Left Mammography 08/10/2024 1:03 PM EDT Narrative 08/10/2024 1:28 PM EDT [facility] [address] [place] [address] [place] [address] Mammography Report Signed Patient: Oma Rodríguez MR#: [id number] : 1970 Acct:[id number] Age/Sex: 54 / F ADM Date: 08/10/24 Loc: HO.MAMMO Attending Dr: Zhanna Hyman DO Ordering Physician: Zhanna Hyman DO Results: 1N egative Date of Service: 08/10/24 Follow Up: 1 Year From Orig ina Mammogram Procedure(s): MM tomosynthesis added views R Accession Number(s): [id number] cc: Zhanna Hyman DO EXAMINATION: MM DIAGNOSTIC DIGITAL BREAST TOMOSYNTHESIS, RIGHT CLINICAL INFORMATION: Call back from screening for asymmetry in the superior right breast on MLO view. COMPARISON: Mammography: [facility] on PACS TECHNIQUE: Digital breast tomosynthesis is performed in both the craniocaudal and mediolateral oblique views along with computer-aided detection (CAD). Synthesized 2D images are generated from the tomosynthesis. FINDINGS: The breasts are heterogeneously dense, which may obscure small masses (ACR BI-RADS breast composition Category c). Previously seen asymmetry in the superior right breast posterior depth on MLO view does not persist on additional imaging projections and likely represented overlapping breast tissue. There are no significant masses, abnormal calcifications, or other abnormalities. MM/MM tomosynthesis added views R IMPRESSION: No mammographic evidence of malignancy. ASSESSMENT: BI-RADS BI-RADS 1 - Negative RECOMMENDATION: 1 year F/U Results were provided to the patient at time of visit by the technologist. This patient's information was entered into a reminder system with a target due date for their next mammogram. Electronically signed by: Kena Cutler DO 08/10/2024 01:25 PM EDT Dictated By: Kena Cutler DO Signed By: <Electronically signed by Kena Cutler DO in OV> 08/10/24 1325 DD/ 1303 TD/TT: 08/10/24 1320 Maintenance Shop Laborer: Procedure Note Donotuseinterpreter, Image - 08/10/2024 [facility] [address] [place], [place] [address] Mammography Report Signed Patient: Lizzeth Rodríguez#: [id number] : 1970Acct:[id number] Age/Sex: 54 / FADM Date: 08/10/24 Loc: HO.MAMMO Attending Dr: Zhanna Hyman DO Ordering Physician: Zhanna Hymanults: 1N egative Date of Service: 08/10/24Follow Up: 1 Year From Orig ina Mammogram Procedure(s): MM tomosynthesis added views R Accession Number(s): [id number] cc: Zhanna Hyman DO EXAMINATION: MM DIAGNOSTIC DIGITAL BREAST TOMOSYNTHESIS, RIGHT CLINICAL INFORMATION: Call back from screening for asymmetry in the superior right breast on MLO view. COMPARISON: Mammography: [facility] on PACS TECHNIQUE: Digital breast tomosynthesis is performed in both the craniocaudal and mediolateral oblique views along with computer-aided detection (CAD). Synthesized 2D images are generated from the tomosynthesis. FINDINGS: The breasts are heterogeneously dense, which may obscure small masses (ACR BI-RADS breast composition Category c). Previously seen asymmetry in the superior right breast posterior depth on MLO view does not persist on additional imaging projections and likely represented overlapping breast tissue. There are no significant masses, abnormal calcifications, or other abnormalities. MM/MM tomosynthesis added views R IMPRESSION: No mammographic evidence of malignancy. ASSESSMENT: BI-RADS BI-RADS 1 - Negative RECOMMENDATION: 1 year F/U Results were provided to the patient at time of visit by the technologist. This patient's information was entered into a reminder system with a target due date for their next mammogram. Electronically signed by: Kena Cutler DO 08/10/2024 01:25 PM EDT Dictated By: Kena Cutler DO Signed By: <Electronically signed by Kena Cutler DO in OV> 08/10/24 1325 DD/ 1303 TD/TT: 08/10/24 1320 Maintenance Shop Laborer: Zhanna Hyman DO IMG BI PROCEDURES Edited Res ult - Final * BI Mammogram Screening Tomosynthesis Bilateral (06/22/2024 11:30 AM EDT) Anatomical Region Laterality Modality Breast Bilateral Mammography 06/22/2024 11:3 0 AM EDT Narrative 07/01/2024 8:39 PM EDT [facility] [address] [place], [place] [address] Mammography Report Signed Patient: Oma Rodríguez MR#: [id number] : 1970 Acct:[id number] Age/Sex: 54 / F ADM Date: 06/22/24 Loc: HO.MAMMO Attending Dr: Zhanna Hyman DO Ordering Physician: Zhanna Hyman DO Results: 0I ncomplete: Needs Additional Imaging Evaluation Date of Service: 06/22/24 Follow Up: Additional Imagi ng Procedure(s): MM tomosynthesis screening BI Accession Number(s): [id number] cc: Zhanna Hyman DO EXAMINATION: MM SCREENING DIGITAL BREAST TOMOSYNTHESIS, BILATERAL CLINICAL INFORMATION: Screening. Asymptomatic. COMPARISON: Mammography: Comparison is made with available priors TECHNIQUE: Digital breast mammography with tomosynthesis is performed in both the craniocaudal and mediolateral oblique views along with computer-aided detection (CAD). FINDINGS: The breasts are heterogeneously dense, which may obscure small masses (ACR BI-RADS breast composition Category c). Right: Asymmetry superior breast middle to posterior depth on MLO view. No suspicious calcifications or other abnormal findings. Left: There are no significant masses, abnormal calcifications, or other abnormalities. MM/MM tomosynthesis screening BI IMPRESSION: No mammographic evidence of malignancy. ASSESSMENT: BI-RADS BI-RADS 0 - Incomplete: Needs additional Imaging. RECOMMENDATION: 1. Additional views of the right breast. 2. Targeted ultrasound if warranted after review of the additional views. 3. Radiology department staff will contact the patient for additional imaging. Additional Imaging required This examination should not preclude the clinical evaluation of a suspicious palpable abnormality. This patient's information was entered into a reminder system with a target due date for their next mammogram. Electronically signed by: Kena Cutler DO 07/01/2024 08:37 PM EDT Dictated By: Kena Cutler DO Signed By: <Electronically signed by Kena Cutler DO in OV> 07/01/242036 DD/ 1130 TD/TT: 06/22/24 1146 Maintenance Shop Laborer: Procedure Note Donotuseinterpreter, Image - 07/01/2024 [facility] [address] [place], [place] [address] Mammography Report Signed Patient: Lizzeth Rodríguez#: [id number] : 1970Acct:[id number] Age/Sex: 54 / FADM Date: 06/22/24 Loc: HO.MAMMO Attending Dr: Zhanna Hyman DO Ordering Physician: Zhanna Hymanults: 0I ncomplete: Needs Additional Imaging Evaluation Date of Service: 06/22/24Follow Up: Additional Imagi ng Procedure(s): MM tomosynthesis screening BI Accession Number(s): [id number] cc: Zhanna Hyman DO EXAMINATION: MM SCREENING DIGITAL BREAST TOMOSYNTHESIS, BILATERAL CLINICAL INFORMATION: Screening. Asymptomatic. COMPARISON: Mammography: Comparison is made with available priors TECHNIQUE: Digital breast mammography with tomosynthesis is performed in both the craniocaudal and mediolateral oblique views along with computer-aided detection (CAD). FINDINGS: The breasts are heterogeneously dense, which may obscure small masses (ACR BI-RADS breast composition Category c). Right: Asymmetry superior breast middle to posterior depth on MLO view. No suspicious calcifications or other abnormal findings. Left: There are no significant masses, abnormal calcifications, or other abnormalities. MM/MM tomosynthesis screening BI IMPRESSION: No mammographic evidence of malignancy. ASSESSMENT: BI-RADS BI-RADS 0 - Incomplete: Needs additional Imaging. RECOMMENDATION: 1. Additional views of the right breast. 2. Targeted ultrasound if warranted after review of the additional views. 3. Radiology department staff will contact the patient for additional imaging. Additional Imaging required This examination should not preclude the clinical evaluation of a suspicious palpable abnormality. This patient's information was entered into a reminder system with a target due date for their next mammogram. Electronically signed by: Kena Cutler DO 07/01/2024 08:37 PM EDT Dictated By: Kena Cutler DO Signed By: <Electronically signed by Kena Cutler DO in OV> 07/01/242036 DD/ 1130 TD/TT: 06/22/24 1146 Maintenance Shop Laborer: Zhanna Boogie ROSA IMG BI PROCEDURES Edited Res ult - Final * Cologuard?? colon cancer screening (06/08/2023 9:58 AM EDT) Cologuard Result Negative Negative 06/13/19 5:06 PM EDT [facility] (CLIA #:[id number]) Comment: NEGATIVE TEST RESULT. A negative Cologuard result indicates a low likelihood that a colorectal cancer (CRC) or advanced adenoma (adenomatous polyps with more advanced pre-malignant features) is present. The chance that a person with a negative Cologuard test has a colorectal cancer is less than 1 in 1500 (negative predictive value >99.9%) or has an advanced adenoma is less than 5.3% (negative predictive value 94.7%). These data are based on a prospective cross-sectional study of 10,000 individuals at average risk for colorectal cancer who were screened with both Cologuard and colonoscopy. (Juana Chapa et al, N Engl J Med 2014;370(14):9901-7421) The normal value (reference range) for this assay is negative. COLOGUARD RE-SCREENING RECOMMENDATION: Periodic colorectal cancer screening is an important part of preventive healthcare for asymptomatic individuals at average risk for colorectal cancer. Following a negative Cologuard result, the [place] Cancer Society and U.S. Multi-Society Task Force screening guidelines recommend a Cologuard re-screening interval of 3 years. References: [place] Cancer Society Guideline for Colorectal Cancer Screening: https://www.cancer.org/cancer/epnya-bfmqhu-mxbcvw/kvnoowasq-vjvxtkdaw-htvokto/ac s-rec ommendations.html.; Dariel LAWS, Trung CR, Aubree CAUSEY, Colorectal Cancer Screening: Recommendations for Physicians and Patients from the U.S. Multi-Society Task Force on Colorectal Cancer Screening , Am J Gastroenterology 2017; 112:1313-2586. TEST DESCRIPTION: Composite algorithmic analysis of stool DNA-biomarkers with hemoglobin immunoassay. Quantitative values of individual biomarkers are not [...] (Juana Sánchez al, N Engl J Med 2014;370(14):8181-2379.) Cologuard may produce a false negative or false positive result (no colorectal cancer or precancerous polyp present at colonoscopy follow up). A negative Cologuard test result does not guarantee the absence of CRC or advanced adenoma (pre-cancer). The current Cologuard screening interval is every 3 years. ([place] Cancer Society and U.S. Multi-Society Task Force). Cologuard performance data in a 10,000 patient pivotal study using colonoscopy as the reference method can be accessed at the following location: www.[employer]/results. Additional description of the Cologuard test process, warnings and precautions can be found at www.POS on CLOUDrd.com. Stool specimen (specimen) 06/08/2023 9:58 AM EDT 06/09/2023 2:31 PM EDT Zhanna Hyman DO LAB MOLECULAR DIAGNOSTICS OR DERABLES Final Result [facility] (CLIA #:[id number]) [place] [address], * (ABNORMAL) Lipid Panel, Standard (05/18/2023 1:34 PM EDT) Triglycerides 75 <150 mg/dL [facility] Comment:Desirable Triglyceri de: less than 150 mg/dLBorderline High Triglyceride 150-199 mg/dLHigh Triglyceride: 200-499 mg/dLVery High Triglyceride: greater than or equal to 5OO mg/dL Cholesterol 240(H) <200 mg/dL [facility] Comment:Desirable Cholestero l: less than 200 mg/dLBorderline High Cholesterol: 200-239 mg/dLHigh Cholesterol: greater than 239 mg/dL LDL Cholesterol Calculated 138(H) <100 mg/dL [facility] Comment:Desirable LDL: less than 100 mg/dLNear Optimal/Above Optimal LDL: 110- 129 mg/dLBorderline High LDL: 130-159 mg/dLHigh LDL: 160-189 mg/dLVery High LDL: greater than or equal to 190 mg/dL HDL Cholesterol 87 >40 mg/dL [facility] Comment:Desirable HDL: great er than 40 mg/dL Note: This HDL assay may give artificially low results in patients with liver disease. Blood Venous blood specimen / Unknown 05/18/2023 1:34 PM EDT 05/18/2023 4:06 PM EDT Zhanna Hyman DO LAB BLOOD ORDERABLES Final R esult [facility] [address] [place] [address] [phone] * Fecal Globin by Immunochemistry (04/22/2022 12:00 AM EST) Fecal Globin By Immunochemistry SEE NOTE [facility] Comment: FECAL GLOBIN BY IMMUNOCHEMISTRY Micro Number: [id number] Test Status: Final Specimen Source: Not given Specimen Quality: Adequate Fecal Globin: Not Detected 04/22/2022 04/28/2022 10: 11 PM EST Narrative [facility] - 04/29/2022 10:56 AM EST FASTING: UNKNOWN Zhanna Hyman DO LAB BODY FLUIDS AND STOOLS O RDERABLES Final Result [facility] [address] [facility] [place] [address] [facility] [address] [facility], ([address]) [place] [address] * Hepatitis C Antibody Reflex (04/10/2022 12:27 PM EST) Hepatitis C Antibody Nonreactive Nonreactive [facility] Comment:Antibodies to HCV no t detected; does not exclude early acuteHCV infection. 04/10/2022 12:2 7 PM EST 04/10/2022 12:27 PM EST [facility] External Provider LAB BLO OD ORDERABLES Final Result Performing Organization Address City/[facility]/ZIP Co de Phone Number [facility] [address] [place] [phone] * HIV Ab/Ag ([place]) (04/10/2022 12:27 PM EST) HIV AB/AG Nonreactive Nonreactive [facility] Comment:HIV-1 p24 Ag and/or HIV-1/HIV-2 Ab not detected.A test result that is nonreactive does not exclude thepossibility of exposure to or infection with HIV-1 and/orHIV-2. Nonreactive results in this assay for individualswith prior exposure to HIV-1 and/or HIV-2 may be due toantigen and antibody levels that are below the limit ofdetection of this assay.The [employer] HIV Ag/Ab Combo assay result andsupplemental assay results should be interpreted inconjunction with the patient's clinical presentation,history and other laboratory results. If the results areinconsistent with clinical evidence, additional testing issuggested to confirm the result. 04/10/2022 12:2 7 PM EST 04/10/2022 12:27 PM EST us [facility] External Provider LAB BLO OD ORDERABLES Final Result [facility] [address] [place] [address] [phone] * THINPREP TIS PAP (08/01/2021 10:31 AM EDT) Clinical Information: None given [facility] COMMENT SEE COMMENT [facility] Comment: EXPLANATORY NOTE: The Pap is a screening test for cervical cancer. It is not a diagnostic test and is subject to false negative and false positive results. It is most reliable when a satisfactory sample, regularly obtained, is submitted with relevant clinical findings and history, and when the Pap result is evaluated along with historic and current clinical information. COMMENT: SEE COMMENT [facility] Comment: This case could not be evaluated with computer assisted technology. The slide was manually screened according to routine procedures. Sap Bpc Architect : SEE COMMENT [facility] Comment: WAC, CT(ASCP) CT screening location: [place] [address] Interpretation/R esult: Negative for intraepithelial lesion or malignancy. [facility] LMP: NONE GIVEN [facility] Prev. BX: NONE GIVEN [facility] Prev. PAP: NONE GIVEN [facility] SOURCE: None given [facility] Statement Of Adequacy: SEE COMMENT [facility] Comment: Satisfactory for evaluation. Endocervical/transformation zone component present. Partially obscuring inflammation Age and/or menstrual status not provided 08/01/2021 10:3 1 AM EDT us Zhanna Hyman DO LAB PATHOLOGY ORDERABLES Fin al Result [facility] [address] * HPV mRNA E6/E7 REFLEX TO HPV 16, 18/45 (08/01/2021 10:31 AM EDT) HPV nRNA E6/E7 Not Detected Not Detected [facility] Comment: Methodology: Director New Product-Mediated Amplification This assay detects E6/E7 viral messenger RNA (mRNA) from 14 high-risk HPV types (16,18,31,33,35,39,45,51,52,56,58,59,66,68). Cervical sources are required for HPV testing. If a vaginal source from a patient who has had a total hysterectomy with removal of cervix was submitted, please contact the testing laboratory for alternative testing options. For additional information, please refer to http://education.Access Scientific/faq/YCR079f4 (This link if provided for information/ educational purposes only.) 08/01/2021 10:3 1 AM EDT us Zhanna Hyman DO LAB CYTOLOGY ORDERABLES Yasmin granados Result [facility] [address] from Last 3 Months or Most Recently Relevant to Health Maintenance Insurance LIMITED HSN FULL Care Teams Jumpbasting Canvas Baster Relationship Specialty Start Date End Date Zhanna Hyman DO [address] [place] [phone] PCP - General Family Medicine 11/13/20
--- OUTSIDE RECORDS SUMMARY | 2024-11-10 12:34 | XMS_ITS | Encounter Summary ---
Author Organization [facility] Address [address] [facility] [address] [place] [address] Phone Care Team Providers Care Rug Clipper Name Role Phone Zhanna Hyman DO Primary Care Provider Unava ilable Encounter Details Date Type Department Care Team (Late st Contact Info) Description 06/12/2021 Telephone [facility] [address] [facility] [address] [place] [address] Reji Dubon MD [address] [facility] [address] [place] [address] Social History Tobacco Use Types [...] the script for spironolactone. Please resend to [facility] pharmacy Thank you documented in this encounter Plan of Treatment Not on file documented as of this encounter Visit Diagnoses Not on filedocumented in this encounter Care Teams Rug Clipper Relationship Specialty Start Date End Date Zhanna Hyman DO PCP - General Family Medicine 11/01/20 documented as of this encounter
--- OUTSIDE RECORDS SUMMARY | 2024-11-10 12:34 | XMS_ITS | Encounter Summary ---
Author Organization [employer] Address [address] [place] [address] 7t [place] [address] Care Team Providers Care Bedspread Folder Name Role Phone Zhanna Hyman DO Primary Care Provider + [phone] Encounter Details Date Type Department Care Team (Latest Contact Info) Description 11/10/2024 Travel Social History Tobacco Use Types Packs/Day Years [...] AM EDT documented as of this encounter Functional Status * Over the past 2 weeks, how often have you been bothered by any of the following problems? Question Answer Date of Assessment Author Patient Health Questionnaire -2 Score 0 11/10/2024 10:55 AM EDT Kira Bello MA * Little interest or pleasure in doing things Answer Date of Assessment Author Not at all 11/10/2024 10:55 AM ADALBERTOT Kira Bello MA * Feeling down, depressed, or hopeless Answer Date of Assessment Author Not at all 11/10/2024 10:55 AM ADALBERTOT Kira Bello MA * Trouble falling or staying asleep, or sleeping too much Answer Date of Assessment Author Not at all 11/10/2024 10:55 AM ADALBERTOT Kira Bello MA * Feeling tired or having little energy Answer Date of Assessment Author Several days 11/10/2024 10:55 AM ADALBERTOT Kira Bello MA * Poor appetite or overeating Answer Date of Assessment Author Not at all 11/10/2024 10:55 AM ADAL[place]ERTOT Kira Bello MA * Feeling bad about yourself - or that you are a failure or have let yourself or your family down Answer Date of Assessment Author Not at all 11/10/2024 10:55 AM ADALBERTOT Kira Bello MA * Trouble concentrating on things, such [...] 10:55 AM EDT Kira Bello MA * Thoughts that you would be better off or hurting yourself in some way Answer Date of Assessment Author Not at all 11/10/2024 10:55 AM Kira Colby MA * Patient Health Questionnaire-9 Score Answer Date of Assessment Author 1 11/10/2024 10:55 AM ADALBERTOT Kira Bello MA * How difficult have these problems made it for you to do your work, take care of things at home, or get along with other people? Answer Date of Assessment Author Not difficult at all 11/10/2024 10:55 AM EDT Kira Del Toro MA * Over the last 2 weeks, how often have you been bothered by any of the following problems? Question Answer Date of Assessment Author Feeling nervous, anxious, or on edge 0 11/10/2024 10:56 AM ADALBERTOT Kira Bello MA Not being able to stop or co ntrol worrying 0 11/10/2024 10:56 AM ADALBERTOT Kira Bello MA Worrying too much about diff erent things 0 11/10/2024 10:56 AM Kira Colby MA Trouble relaxing 0 11/10/2024 10:56 AM ADALBERTOT Kira Bello MA Being so restless that it is hard to sit still 0 11/10/2024 10:56 AM Kira Colby MA Becoming easily annoyed or irritable 1 11/10/2024 10:56 AM ADALBERTOT Kira Bello MA Feeling afraid as if somethi ng awful might happen 0 11/10/2024 10:56 AM Kira Colby MA CONNER-7 Total Score 1 11/10/2024 10:56 AM Kira Colby MA documented as of this encounter Plan of Treatment Upcoming Encounters Date Type Department Care Team (Late st Contact Info) Description 11/24/2024 10:30 AM EDT Office Visit [facility] MEDICINE [address] [place] [address] Sydnee Duran MD [address] [place] [address] documented as of this encounter Visit Diagnoses Not on filedocumented in this encounter Additional Health Concerns Assessment Noted Time PHQ-9 Depression Total Score: 1 11/11/19 25 10:55 AM EDT documented as of this encounter Care Teams Bedspread Folder Relationship Specialty Start Date End Date Zhanna Hyman DO 230 [facility] [place] [address] PCP - General Family Medicine 11/13/20 documented as of this encounter
[2024-11-10 13:33] LABS: Hematocrit 34.1 % (37.0-47.0); Hemoglobin 12.0 g/dl (12.0-16.0); Mean Corpuscular HGB Conc 35.2 g/dl (31.0-35.0); Mean Corpuscular Hemoglobin 31.2 pg (27.0-33.0); Mean Corpuscular Volume 88.6 fL (80.0-98.0); NRBC Abs Auto 0.000 X10*3/uL (0.0-0.012); NRBC Pct Auto 0.0 /100WBC (0.0-0.2); Platelet Count 212 X10*3/uL (160-400); Red Blood Count 3.85 X10*6/uL (4.20-5.50); White Blood Count 5.4 X10*3/uL (4.8-10.8)
[2024-11-10 13:45] LABS: Hemoglobin A1C 97.3265 umol/L; Total Hemoglobin (HGBA1C) 3190.6621 umol/L
[2024-11-10 14:03] LABS: Microalbum/Creatinine Ratio Ur 205.3 ug/mg cr (<30)
[2024-11-10 14:07] LABS: Alanine Aminotransferase 46 U/L (0-31); Albumin Level 4.5 g/dL (3.5-5.0); Alkaline Phosphatase 98 U/L (39-117); Anion Gap 13 (12-20); Aspartate Amino Transferase 46 U/L (5-31); Blood Urea Nitrogen 14 mg/dL (9-16); Calcium 8.9 mg/dL (8.4-10.2); Carbon Dioxide 33 mmol/L (22-29); Chloride 100 mmol/L (96-108); Cholesterol 237 mg/dL (<200); Estimated Glomerular Filt Rate > 60; HDL Cholesterol 65 mg/dL (>40); Potassium 2.5 mmol/L (3.3-5.1); Sodium 143 mmol/L (135-145); Total Protein 7.6 g/dL (6.5-8.0); Triglycerides 73 mg/dL (<150)
[2024-11-10 14:16] LABS: Free T4 (Free Thyroxine) 1.16 ng/dL (0.71-1.85); Thyroid Stimulating Hormone 2.44 uIU/mL (0.32-4.0)
[2024-11-11 07:50] LABS: Follicle Stimulating Hormone 55.3 mIU/mL
[2024-11-13 03:55] LABS: HIV Num 1 0.05 S/CO (0.00-0.99); ~HepC Num1 0.15 S/CO (0.00-0.79); ~Hepatitis C Antibody Nonreactive (Nonreactive)
== END 2024-11-10 11:46 | disposition home or self-care (01) ==
LOC: HO.HHCL 11:45
PROVIDERS: PCP Family Medicine; Visit Provider Family Medicine
DX: Z00.00 Encounter for general adult medical examination without abnormal findings (principal); I10 Essential (primary) hypertension; I70.1 Atherosclerosis of renal artery; R79.89 Other specified abnormal findings of blood chemistry; N95.1 Menopausal and female climacteric states; N32.81 Overactive bladder; L65.9 Nonscarring hair loss, unspecified; Z71.3 Dietary counseling and surveillance; Z71.82 Exercise counseling; Z13.6 Encounter for screening for cardiovascular disorders; Z11.3 Encounter for screening for infections with a predominantly sexual mode of transmission; Z11.8 Encounter for screening for other infectious and parasitic diseases; Z11.59 Encounter for screening for other viral diseases
CPT/HCPCS: 36415; 80048; 80061; 80076; 82043; 82306; 82570; 83001; 83002; 83036; 84439; 84443; 85027; 86592; 86803; 87389

== ENCOUNTER 2024-11-17 11:46 | Outpatient (REF) | payer MEDICAID, SELFPAY ==
--- OUTSIDE RECORDS SUMMARY | 2024-11-17 10:00 | XMS_ITS | Encounter Summary ---
Author Organization [employer] Address [address] [place] [address] 7 [place] [address] Care Team Providers Care Data Entry Name Role Phone KristieZhanna winkler Primary Care Provider + [phone] Reason for Visit * Reason Comments Hospital Follow-up Encounter Details Date Type Department Care Team ([facility] st Contact Info) Description 11/17/2024 10:00 AM EDT Office Visit [facility] MEDICINE [address] [place] [address] Estela Wiggins MD [address] [place] [address] Hypokalemia (Primary Dx); Left adrenal mass (CMS/HCC) Social History Tobacco Use Types Packs/Day Years [...] Sign Reading Time Taken Comments Blood Pressure 150/110 11/17/2024 10:01 AM EDT Pulse 72 11/17/2024 10:01 AM EDT Temperature 36.1 C (97 F) 11/17/2024 10:01 AM EDT Respiratory Rate 20 11/17/2024 10:01 AM EDT Oxygen Saturation - - Inhaled Oxygen Concentration - - Weight 76.2 kg (168 lb) 11/17/2024 10:01 AM EDT Height 170.2 cm (5' 7 ) 11/17/2024 10:01 AM EDT Body Mass Index 26.31 11/17/2024 10:01 AM EDT documented in this encounter Plan of Treatment Upcoming Encounters Date Type Department Care Team (Late st Contact Info) Description 11/24/2024 10:30 AM EDT Office Visit [facility] MEDICINE [address] [place] [address] Sydnee Duran MD [address] [place] [address] documented as of this encounter Procedures Procedure Name Priority Date/Time Associated Diagnosis Comments URINALYSIS, COMPLETE, WITH REFLEX TO CULTURE Routine 11/17/2024 11:49 AM EDT Hypokalemia BASIC METABOLIC PANEL Routine 11/17/2024 11:49 AM EDT Hypokalemia documented in this encounter Results * Urinalysis, Complete, with Reflex to Culture (11/17/2024 11:49 AM EDT) Color Urine Yellow [facility] Appearance Urine Clear [facility] PH 8.0 5.0 - 9.0 [facility] Glucose Urine UA Negative Negative mg/dL [facility] Urine Blood Negative Negative [facility] Specific United - Urine <=1.005 1.005 - 1.025 [facility] Urine Protein Negative Neg-Trace mg/dL [facility] Urine Ketones Negative Negative mg/dL [facility] Nitrite Urine Negative Negative [facility] Leukocyte Esterase Urine Negative Negative [facility] RBC Urine 0-2 0 - 2 /HPF [facility] Urine WBC 0-5 0 - 5 /HPF [facility] Urine Squamous Epithelial Cell 0-2 0 - 2 /HPF [facility] Urine Bacteria None Seen None Seen [facility] Hyaline Casts, Urine 0-2 0 - 2 /LPF [facility] Urine 11/17/2024 11:4 9 AM EDT 11/17/2024 1:08 PM EDT Narrative [facility] - 11/17/2024 1:52 PM EDT Urine, Clean Catch us Estela Wiggins MD LAB URINE ORDERABLES Final Res ult [facility] [address] [place] [address] [phone] * Basic Metabolic Panel (11/17/2024 11:49 AM EDT) Sodium 140 135 - 145 mmol/L [facility] Potassium 4.7 3.3 - 5.1 mmol/L [facility] Chloride 105 96 - 108 mmol/L [facility] Carbon Dioxide 28 22 - 29 mmol/L [facility] Anion Gap 12 12 - 20 [facility] Urea Nitrogen (BUN) 14 9 - 16 mg/dL [facility] Creatinine, Serum 0.84 0.5 - 1.4 mg/dL [facility] Estimated Glomerular Filt Rate >60 [facility] Comment:Chronic Kidney Disea se: Estimated GFR < 60 mL/min/1.28a7Taksdu Kidney Disease: Estimated GFR < 15 mL/min/1.73m2 Glucose 91 60 - 115 mg/dL [facility] Calcium 9.5 8.4 - 10.2 mg/dL [facility] Blood Venous blood specimen / Unknown 11/17/2024 11:49 AM EDT 11/17/2024 1:38 PM EDT us Estela Wiggins MD LAB BLOOD ORDERABLES Final Res ult Performing Organization Address City/State/[facility] [[email or web address]] Co de Phone Number [facility] [address] [place] [address] [phone] documented in this encounter Visit Diagnoses Diagnosis Hypokalemia- Primary Hypopotassemia Left adrenal mass (CMS/HCC) Unspecified disorder of adrenal glands documented in this encounter Additional Health Concerns Assessment Noted Time PHQ-9 Depression Total Score: 1 11/11/19 25 10:55 AM EDT documented as of this encounter Care Teams Data Entry Relationship Specialty Start Date End Date Zhanna Hyman DO [address] [place] [address] PCP - General Family Medicine 11/13/20 documented as of this encounter
[2024-11-17 13:42] LABS: Appearance Urine Clear; Glucose Urine UA Negative (Negative); PH 8.0 (5.0-9.0); Specific Gravity - Urine <= 1.005 (1.005-1.025)
[2024-11-17 14:05] LABS: Anion Gap 12 (12-20); Blood Urea Nitrogen 14 mg/dL (9-16); Calcium 9.5 mg/dL (8.4-10.2); Carbon Dioxide 28 mmol/L (22-29); Chloride 105 mmol/L (96-108); Estimated Glomerular Filt Rate > 60; Potassium 4.7 mmol/L (3.3-5.1); Sodium 140 mmol/L (135-145)
--- OUTSIDE RECORDS SUMMARY | 2024-11-17 14:13 | XMS_ITS | Clinical Summary ---
Author Organization [facility] Address [address] [place] [address] Care Team Providers Care Radiation Officer Name Role Phone Zhanna Hyman DO Primary [...] 2021 Influenza Vaccine (#1) 2024 Care Teams Radiation Officer Relationship Specialty Start Date End Date Zhanna Hyman DO PCP - General Family Medicine 11/01/20
--- OUTSIDE RECORDS SUMMARY | 2024-11-17 14:13 | XMS_ITS | Encounter Summary ---
Author Organization [employer] Address [address] [place] [address] 7 [place] [address] Care Team Providers Care Community Relations Liaison Name Role Phone Zhanna Hyman DO Primary Care Provider + [phone] Reason for Visit * Reason Onset Date Comments chart prep 11/16/2024 Encounter Details Date Type Department Care Team ([facility] st Contact Info) Description 11/16/2024 Telephone [facility] MEDICINE [address] [place] [address] Zhanna Hyman DO [address] [place] [address] chart prep Social History Tobacco Use Types Packs/Day Years [...] AM EDT documented as of this encounter Miscellaneous Notes * Telephone Encounter - Lydia Vidales MA - 11/16/2024 11:21 AM EDT Chart Prep Labs: done Images: done Referrals: complete Vaccines due: Covid, Flu, PCV20, Hep B, and Zoster Screenings: not applicable Overdue care gaps: SDOH, PHQ-9, CONNER-7, and Disability screen documented in this encounter Plan of Treatment Upcoming Encounters Date Type Department Care Team (Late st Contact Info) Description 11/24/2024 10:30 AM EDT Office Visit [facility] MEDICINE [address] [place] [address] Sydnee Duran MD [address] [place] [address] documented as of this encounter Visit Diagnoses Not on filedocumented in this encounter Additional Health Concerns Assessment Noted Time PHQ-9 Depression Total Score: 1 11/11/19 25 10:55 AM EDT documented as of this encounter Care Teams Community Relations Liaison Relationship Specialty Start Date End Date Zhanan Hyman DO [address] [place] [address] PCP - General Family Medicine 11/13/20 documented as of this encounter
--- OUTSIDE RECORDS SUMMARY | 2024-11-17 14:13 | XMS_ITS | Encounter Summary ---
Author Organization [employer] Address [address] [place] [address] [place] [address] Care Team Providers Care Telemarketing Manager Name Role Phone Zhanna Hyman DO Primary Care Provider [phone] Reason for Visit * Reason Comments Transition Of Care (Tcm) HDF unscheduled Encounter Details Date Type Department Care Team ([facility] st Contact Info) Description 11/14/2024 Patient Outreach [facility] MEDICINE [address] [place] [address] Zhanna Hyman DO [address] [place] [address] Transition Of Care (Tcm) (HDF unscheduled) Social History Tobacco Use Types Packs/Day Years [...] as of this encounter Miscellaneous Notes * Significant Event - Guadalupe Trevino - 11/14/2024 1:37 PM EDT 11/14/24 1337 Hospital Discharges and Admission for [facility] Type of Visit Hospital Admission Date of Admission/Visit 11/10/24 Date of Discharge 11/12/24 Facility [facility] Diagnosis Hypokalemia Disposition Discharged Home Follow-Up Actions Follow-Up Needed Other Follow-Up Outcome Spoke to Patient Initial Contact Date 11/14/24 GALLO Butcher placed second outbound call to patient for HDF outreach. Patient's name and were confirmed. Patient educated on the importance of follow up with provider following inpatient admission. Patient reports she was instructed by [facility] to follow up with PCP and to obtain an order for potassiumlevels patient PCP Boogie does not have any openings at this time and was informed message will besent to team to follow up regarding HDF and order to be sent . Patient provided with education on contacting the Health Center with any questions or concerns prior to the scheduled appointment. Patient educated on extended clinic hours on Mondays and Wednesdays, and Walk-In Urgent Care Located in [facility] of [facility]. Patient provided with after-hours line for [facility], , which offer night time triage service and option to transfer to money laundering investigator provider if needed. [facility] discharge summary has been scanned into patients chart for review. documented in this encounter Plan of Treatment Upcoming Encounters Date Type Department Care Team (Late st Contact Info) Description 11/24/2024 10:30 AM EDT Office Visit [facility] MEDICINE [address] [place] [address] Sydnee Duran MD [address] [place] [address] documented as of this encounter Visit Diagnoses Not on filedocumented in this encounter Additional Health Concerns Assessment Noted Time PHQ-9 Depression Total Score: 1 11/11/19 25 10:55 AM EDT documented as of this encounter Care Teams Telemarketing Manager Relationship Specialty Start Date End Date Zhanna Hyman DO [address] [place] [address] PCP - General Family Medicine 11/13/20 documented as of this encounter
--- OUTSIDE RECORDS SUMMARY | 2024-11-17 14:13 | XMS_ITS | Encounter Summary ---
Author Organization [employer] Address [address] [place] [address] [place] [address] Care Team Providers Care Silo Painter Name Role Phone Zhanna Hyman DO Primary Care Provider [phone] Reason for Visit * Reason Comments Transition Of Care (Tcm) HDF unscheduled Encounter Details Date Type Department Care Team ([facility] st Contact Info) Description 11/13/2024 Patient Outreach [facility] MEDICINE [address] [place] [address] Zhanna Hyman DO [address] [place] [address] Transition Of Care (Tcm) (HDF unscheduled) Social [...] * Significant Event - Guadalupe Trevino - 11/13/2024 8:26 AM EDT 11/13/[address] Hospital Discharges and Admission for [facility] Type of Visit Hospital Admission Date of Admission/Visit 11/10/24 Date of Discharge 11/12/24 Facility [facility] Diagnosis Htpokalemia Disposition Discharged Home Follow-Up Actions Follow-Up Needed Provider appointment Follow-Up Outcome Left Voicemail Initial Contact Date 11/13/24 GALLO Butcher placed outbound call to patient for HDF outreach CC placing call to offer patient with anHDF appointment with provider. No answer at this time. Patient's name and were not confirmed. CC left detailed message educating patient on importance of following up with provider following an inpatient admission. Provided contact information requesting a call back in order to schedule the HDFappointment. Patient educated via voicemail on extended clinic hours on Mondays and Wednesdays, [facility] of [facility]. Patient provided with after-hours line for [facility], , which offer night time triage service and option to transfer to platform consultant provider if needed. [facility] discharge summary has been scanned into chart for review. CC will place additional outreach callwithin 2-5 business days. documented in this encounter Plan of Treatment Upcoming Encounters Date Type Department Care Team (Late st Contact Info) Description 11/24/2024 10:30 AM EDT Office Visit [facility] MEDICINE [address] [place] [address] Sydnee Duran MD [address] [place] [address] documented as of this encounter Visit Diagnoses Not on filedocumented in this encounter Additional Health Concerns Assessment Noted Time PHQ-9 Depression Total Score: 1 11/11/19 10:55 AM EDT documented as of this encounter Care Teams Silo Painter Relationship Specialty Start Date End Date Zhanna Hyman DO [address] [place], [place] [phone] PCP - General Family Medicine 11/13/20 documented as of this encounter
--- OUTSIDE RECORDS SUMMARY | 2024-11-17 14:13 | XMS_ITS | Encounter Summary ---
Author Organization [employer] Address [address] [place] [address] 7t [place] [address] Care Team Providers Care Canal Lock Tender Chief Operator Name Role Phone Zhanna Hyman Primary Care Provider + [phone] Encounter Details Date Type Department Care Team (Latest Contact Info) Description 11/17/2024 Travel Social History Tobacco Use Types Packs/Day [...] Description 11/24/2024 10:30 AM EDT Office Visit [facility] MEDICINE [address] [place] [address] Sydnee Duran MD [address] [place] [address] documented as of this encounter Visit Diagnoses Not on filedocumented in this encounter Additional Health Concerns Assessment Noted Time PHQ-9 Depression Total Score: 1 11/11/19 25 10:55 AM EDT documented as of this encounter Care Teams Canal Lock Tender Chief Operator Relationship Specialty Start Date End Date Zhanna Hyman DO [address] [place] [address] PCP - General Family Medicine 11/13/20 documented as of this encounter
--- OUTSIDE RECORDS SUMMARY | 2024-11-17 14:13 | XMS_ITS | Encounter Summary ---
Author Organization [employer] Address [address] [place] [address] 7t [place] [address] Care Team Providers Care Equity Structurer Name Role Phone Zhanna Hyman DO Primary Care Provider [phone] Encounter Details Date Type Department Care Team (Late st Contact Info) Description 11/16/2024 Refill [facility] MEDICINE [address] [place], [place] [phone] Zhanna Hyman DO [address] [place] [address] Essential hypertension Social History Tobacco Use Types Packs/Day Years [...] Description 11/24/2024 10:30 AM EDT Office Visit [facility] MEDICINE [address] [place] [address] Sydnee Duran MD [address] [place] [address] documented as of this encounter Visit Diagnoses Diagnosis Essential hypertension Unspecified essential hypertension documented in this encounter Additional Health Concerns Assessment Noted Time PHQ-9 Depression Total Score: 1 11/11/19 25 10:55 AM EDT documented as of this encounter Care Teams Equity Structurer Relationship Specialty Start Date End Date Zhanna Hyman DO [address] [place] [address] PCP - General Family Medicine 11/13/20 documented as of this encounter
--- OUTSIDE RECORDS SUMMARY | 2024-11-17 14:13 | XMS_ITS | Encounter Summary ---
Author Organization [employer] Address [address] [place] [address] 7 [place] [address] Care Team Providers Care Glass Or Mirror Inspector Name Role Phone Zhanna Hyman DO Primary Care Provider [phone] Reason for Visit * Reason Onset Date Comments F appointment 11/15/2024 Encounter Details Date Type Department Care Team ([facility] st Contact Info) Description 11/15/2024 Telephone [facility] MEDICINE [address] [place], [place] [phone] Zhanna Hyman DO [address] [place], [place] [phone] HDF appointment Social History Tobacco Use Types Packs/Day Years [...] encounter Miscellaneous Notes * Telephone Encounter - Tati Mcallister RN - 11/15/2024 2:22 PM EDT TC x2 to patient [phone] to schedule HDF appointment. RN scheduled patient for 11/17/[address] Wiggins. Patient agreed to appointment date and time. Patient has enough potassium supplementation to last until appointment date and time and POC regarding K supplement will be addressed atappointment. Patient to f/u PRN. ----- Message from Guadalupe Trevino sent at 11/14/2024 1:42 PM EDT ----- Regarding: HDF and labwork Good afternoon team, patient was called for a second time for an HDF regarding a hospitalization [facility]; (summary has been scanned into patient chart for review.) Patient is requesting she needs an order by provider to monitor potassium level per providers at [facility]. patient reported to administrative underwriter she wasinformed by PCP Boogie to check in when discharge however patients provider does not have any openslots for an HDF to be scheduled patient also expressed concern due to supplements for potassium isending. Please reach out to patient with HDF follow up and potassium level blood work thank you. * Telephone Encounter - Tati Mcallister RN - 11/15/2024 10:54 AM EDT Noted. TC placed to patient [phone] to schedule HDF appointment. Patient did not answer, RN left VM requesting CB to red team nurses. TC placed to spouse [phone] however also no answer, RN left VM requesting CB to red team nurses. RN will re-attempt in PM. ----- Message from Guadalupe Trveino sent at 11/14/2024 1:42 PM EDT ----- Regarding: HDF and labwork Good afternoon team, patient was called for a second time for an HDF regarding a hospitalization [facility]; (summary has been scanned into patient chart for review.) Patient is requesting she needs an order by provider to monitor potassium level per providers at [facility]. patient reported to administrative underwriter she wasinformed by PCP Boogie to check in when discharge however patients provider does not have any openslots for an HDF to be scheduled patient also expressed concern due to supplements for potassium isending. Please reach out to patient with HDF follow up and potassium level blood work thank you. documented in this encounter Plan of Treatment Upcoming Encounters Date Type Department Care Team (Late st Contact Info) Description 11/24/2024 10:30 AM EDT Office Visit [facility] MEDICINE [address] [place] [address] Sydnee Duran MD [address] [place] [address] documented as of this encounter Visit Diagnoses Not on filedocumented in this encounter Additional Health Concerns Assessment Noted Time PHQ-9 Depression Total Score: 1 11/11/19 25 10:55 AM EDT documented as of this encounter Care Teams Glass Or Mirror Inspector Relationship Specialty Start Date End Date Zhanna Hyman DO [address] [place] [address] PCP - General Family Medicine 11/13/20 documented as of this encounter
--- OUTSIDE RECORDS SUMMARY | 2024-11-17 14:14 | XMS_ITS | Encounter Summary ---
Author Organization [employer] Address [address] [place] [address] 7 [place] [address] Care Team Providers Care Floor Covering Layer Name Role Phone Zhanna Hyman DO Primary Care Provider [phone] Encounter Details Date Type Department Care Team (Late st Contact Info) Description 04/21/2022 Orders Only [facility] [address] [place], [place] [phone] Zhanna Cardoza LPN Social History Tobacco Use [...] 10:30 AM EDT Office Visit [facility] MEDICINE [address] [place] [address] Sydnee Duran MD [address] [place] [address] documented as of this encounter Visit Diagnoses Not on filedocumented in this encounter Care Teams Floor Covering Layer Relationship Specialty Start Date End Date Zhanna Hyman DO [address] [place], [place] [phone] PCP - General Family Medicine 11/13/20 documented as of this encounter
--- OUTSIDE RECORDS SUMMARY | 2024-11-17 14:14 | XMS_ITS | Encounter Summary ---
Author Organization [employer] Address [address] [place] [address] 7t [place] [address] Care Team Providers Care Marketing Communications Manager Name Role Phone Zhanna Hyman DO Primary Care Provider [phone] Encounter Details Date Type Department Care Team (Late st Contact Info) Description 11/16/[address] [facility] MEDICINE [address] [place], [place] [phone] Zhanna Hyman DO [address] [place], [place] [phone] Social History Tobacco Use Types Packs/Day Years [...] Description 11/24/2024 10:30 AM EDT Office Visit [facility] MEDICINE [address] [place] [address] Sydnee Duran MD [address] [place] [address] documented as of this encounter Visit Diagnoses Not on filedocumented in this encounter Additional Health Concerns Assessment Noted Time PHQ-9 Depression Total Score: 1 11/11/19 25 10:55 AM EDT documented as of this encounter Care Teams Marketing Communications Manager Relationship Specialty Start Date End Date Zhanna Hyman DO [address] [place] [address] PCP - General Family Medicine 11/13/20 documented as of this encounter
--- OUTSIDE RECORDS SUMMARY | 2024-11-17 14:14 | XMS_ITS | Encounter Summary ---
Author Organization [facility] Address [address] [facility] [address] [place] [address] Phone Care Team Providers [employer] Name Role Phone Zhanna Hyman DO Primary Care Provider Unava ilable Encounter Details Date Type Department Care Team (Late st Contact Info) Description 06/12/2021 Telephone [facility] [address] [facility] [address] [place] [address] Reji Dubon MD [id number] [facility] [address] [place] [address] Social History Tobacco Use Types [...] the script for spironolactone. Please resend to [facility] pharmacy Thank you documented in this encounter Plan of Treatment Not on file documented as of this encounter Visit Diagnoses Not on filedocumented in this encounter Care Teams [employer] Relationship Specialty Start Date End Date Zhanna Hyman DO PCP - General Family Medicine 11/01/20 documented as of this encounter
--- OUTSIDE RECORDS SUMMARY | 2024-11-17 14:14 | XMS_ITS | Clinical Summary ---
Author Organization [employer] Address [address] [place] [address] 7 [place] [address] Care Team Providers Care Hog Confinement System Manager Name Role Phone KristieZhanna winkler Primary Care Provider Allergies No known active allergies Medications spironolactone (Aldactone) 50 MG tablet Take 50 mg by mouth in the morning. 04/01/19 23 Active valsartan (Diovan) 320 MG tabletIndication s:Essential hypertension Take 1 tablet (320 mg) by mouth in the morning. 90 tablet 3 05/18/19 24 Active amLODIPine (Norvasc) 10 MG tabletIndication s:Essential hypertension Take 1 tablet (10 mg) by mouth in the morning. 90 tablet 3 05/18/19 24 Active potassium chloride CR (Klor-Con M20) 20 MEQ ER tablet Take 1 tablet by mouth Once per day. 11/14/19 25 Active hydrALAZINE (Apresoline) 50 MG tablet Take 1 tablet (50 mg) by mouth 3 times daily. 90 tablet 1 11/18/19 25 Active hydrALAZINE (Apresoline) 50 MG tablet Take 50 mg by mouth 3 times daily. 11/13/19 25 025 Discontinued(Re order (will not trigger notification to Pharmacy)) Active Problems Problem Noted Date Diagnosed Date [...] EDT): Continue cryotherapy with derm -f/u w/ [facility] derm as scheduled Renal artery stenosis 06/24/2022 [...] daily -cont home BP monitoring, advised contact [facility] if readings elevated -Cr/GFR nml APR 2022 with mild urine microalbumin FEB 2021, repeat prior to next visit -s/p optho SEP 2021 at [facility] for repeat in 2 years Resolved Problems Problem Noted Date Diagnosed Date Resolved Date Abnormal uterine bleeding 05/18/2023 Assessment & Plan (05/18/2023 12:32 PM EDT): No recurrent sx -pelvic US w/ larger fundal fibroid and benign L ovarian cyst AUG 2022 -reviewed results w/ pt and -advised contact [facility] if sx recur Multiple nevi 05/18/2023 05/18/2023 [...] Encounters Date Type Department Care Team Description 11/17/2024 10:00 AM EDT Office Visit [address] [address] Estela Wiggins MD Hypokalemia (Primary Dx); Left adrenal mass (CMS/HCC) 11/17/2024 Travel 11/16/2024 Refill [facility] [address] [place] [phone] Zhanna Hyman DO Essential hypertension 11/16/2024 Telephone [facility] [address] [place] [phone] Zhanna Hyman DO chart prep 11/16/[address] [address] Zhanna Hyman DO 11/15/2024 Telephone [facility] [address] [place] [phone] Zhanna Hyman DO HDF appointment 11/14/2024 Patient Outreach [address] [address] Zhanna Hyman DO Transition Of Care (Tcm) (HDF unscheduled) 11/13/2024 Patient Outreach [facility] [address] [place] [phone] Zhanna Hyman DO Transition Of Care (Tcm) (HDF unscheduled) 11/10/2024 10:30 AM EDT Office Visit [address] [address] Zhanna Hyman DO Essential hypertension (Primary Dx); Renal artery stenosis (CMS/HCC); Elevated LFTs; Healthcare maintenance; Dietary counseling; Exercise counseling; Menopausal symptoms; Overactive bladder; Hair loss 11/10/2024 Telephone [facility] [address] [place] [address] Zhanna Hyman DO Error (VOID this visit) 11/10/2024 Telephone [facility] [address] [place] [address] Zhanna Hyman DO critical lab 11/10/2024 Travel 11/01/2024 Telephone [facility] [address], [place] [phone] Zhanna Hyman DO Chart Prep 09/28/2024 Telephone [facility] [address] [place] [address] Zhanna Hyman DO Recall Letter (Recall Letter sent 09/28/24.) from Last 3 Months Immunizations Immunization Administration [...] 20 11/17/2024 10:01 AM EDT Oxygen Saturation 97% 11/10/2024 10:52 AM EDT Inhaled Oxygen Concentration - - Weight 76.2 kg (168 lb) 11/17/2024 10:01 AM EDT Height 170.2 cm (5' 7 ) 11/17/2024 10:01 AM EDT Body Mass Index 26.31 11/17/2024 10:01 AM EDT Plan of Treatment Upcoming Encounters Date Type Department Care Team (Late st Contact Info) Description 11/24/2024 10:30 AM EDT Office Visit [facility] [address] [place] [address] Sydnee Duran MD [address] [place] [address] Health Maintenance Due Date Last Done Comments CT Colonography 1970 Colonoscopy 1970 Sigmoidoscopy 1970 Disability Screening 1970 Family Planning (PISQ) 06/08/1987 Hepatitis B Vaccines (1 of 3 - 19+ 3-dose series) 06/08/1991 Pneumococcal Vaccine: 50+ Years (1 of 1 - PCV) 2022 Zoster Vaccines (1 of 2) 2022 FIT 04/22/2023 04/22/2022 SDOH Screening 07/23/2023 07/22/2022 FOBT 2024 06/08/2023, 04/22/2022 COVID-19 Vaccine ( season) 2024 Influenza Vaccine (#1) 2024 Mammogram 06/22/2025 06/22/2024, 06/06, 06/15/2022, Additional history exists Alcohol/Substance Use Screening 11/10/2025 11/10/2024 Depression Screening 11/10/2025 11/10/2024, 11/11/19 Tobacco Screening 11/17/2025 11/17/2024 Colorectal Cancer Screening 2026 FIT DNA/Cologuard 2026 06/08/2023 Cervical Cancer Screening 08/01/2026 HPV/Cotest 08/01/2026 08/01/2021 Pap Smear 08/01/2026 08/01/2021 Lipid Panel 11/10/2029 11/10/2024, 05/06, 04/10/2022, Additional history exists DTaP/Tdap/Td Vaccines (2 - Td or Tdap) 09/13/2033 09/14/2023 RSV Patients and Patients Aged 60 years or older (1 - 1-dose 75+ series) 06/08/2047 HIV Screening Completed 11/10/2024, 020 05/2022, 02/10/2021 Hepatitis C Screening Completed 11/10/2024 , 04/10/2022, 02/10/2021 HIB Vaccines Aged Out No longer eligi [...] PANEL Routine 11/17/2024 11:49 AM EDT Hypokalemia LH Routine 11/10/2024 11:56 AM EDT Essential hypertension Renal artery stenosis (CMS/HCC) Elevated LFTs Healthcare maintenance Dietary counseling Exercise counseling Menopausal symptoms Overactive bladder Hair loss FSH Routine 11/10/2024 11:56 AM EDT Essential hypertension Renal artery stenosis (CMS/HCC) Elevated LFTs Healthcare maintenance Dietary counseling Exercise counseling Menopausal symptoms Overactive bladder Hair loss RPR (MONITOR) W/REFL TITER Routine 11/10/2024 11:56 AM EDT Essential hypertension Renal artery stenosis (CMS/HCC) Elevated LFTs Healthcare maintenance Dietary counseling Exercise counseling Menopausal symptoms Overactive bladder Hair loss HEPATITIS C AB W/REFL TO HCV RNA, QN, PCR Routine 11/10/2024 11:56 AM EDT Essential hypertension Renal artery stenosis (CMS/HCC) Elevated LFTs Healthcare maintenance Dietary counseling Exercise counseling Menopausal symptoms Overactive bladder Hair loss HIV 1/2 ANTIGEN/ANTIBODY, FOURTH GENERATION W/RFL Routine 11/10/2024 11:56 AM EDT Essential hypertension Renal artery stenosis (CMS/HCC) Elevated LFTs Healthcare maintenance Dietary counseling Exercise counseling Menopausal symptoms Overactive bladder Hair loss ALBUMIN, RANDOM URINE W/CREATININE Routine 11/10/2024 11:56 AM EDT Essential hypertension Renal artery stenosis (CMS/HCC) Elevated LFTs Healthcare maintenance Dietary counseling Exercise counseling Menopausal symptoms Overactive bladder Hair loss CBC Routine 11/10/2024 11:56 AM EDT Essential hypertension Renal artery stenosis (CMS/HCC) Elevated LFTs Healthcare maintenance Dietary counseling Exercise counseling Menopausal symptoms Overactive bladder Hair loss BASIC METABOLIC PANEL Routine 11/10/2024 11:56 AM EDT Essential hypertension Renal artery stenosis (CMS/HCC) Elevated LFTs Healthcare maintenance Dietary counseling Exercise counseling Menopausal symptoms Overactive bladder Hair loss HEMOGLOBIN A1C Routine 11/10/2024 11:56 AM EDT Essential hypertension Renal artery stenosis (CMS/HCC) Elevated LFTs Healthcare maintenance Dietary counseling Exercise counseling Menopausal symptoms Overactive bladder Hair loss HEPATIC FUNCTION PANEL Routine 11:56 AM EDT Essential hypertension Renal artery stenosis (CMS/HCC) Elevated LFTs Healthcare maintenance Dietary counseling Exercise counseling Menopausal symptoms Overactive bladder Hair loss TSH Routine 11/10/2024 11:56 AM EDT Essential hypertension Renal artery stenosis (CMS/HCC) Elevated LFTs Healthcare maintenance Dietary counseling Exercise counseling Menopausal symptoms Overactive bladder Hair loss LIPID PANEL, STANDARD Routine 11/10/2024 11:56 AM EDT Essential hypertension Renal artery stenosis (CMS/HCC) Elevated LFTs Healthcare maintenance Dietary counseling Exercise counseling Menopausal symptoms Overactive bladder Hair loss VITAMIN D,25-OH,TOTAL,IA Routine 11/10/2024 11:56 AM EDT Essential hypertension Renal artery stenosis (CMS/HCC) Elevated LFTs Healthcare maintenance Dietary counseling Exercise counseling Menopausal symptoms Overactive bladder Hair loss T4, FREE Routine 11/10/2024 11:56 AM EDT Essential hypertension Renal artery stenosis (CMS/HCC) Elevated LFTs Healthcare maintenance Dietary counseling Exercise counseling Menopausal symptoms Overactive bladder Hair loss BI MAMMOGRAM SCREENING TOMOSYNTHESIS BILATERAL Routine 06/22/2024 11:30 AM EDT LAB COLOGUARD COLON CANCER SCREEN Routine 06/08/2023 9:58 AM EDT Encounter for screening for malignant neoplasm of colon FECAL GLOBIN BY IMMUNOCHEMISTRY Routine 04/22/2022 12:00 AM EST HPV MRNA E6/E7 REFLEX TO HPV 16, 18/45 Routine 08/01/2021 10:31 AM EDT THINPREP IMAGING SYSTEM PAP Routine 08/01/2021 10:31 AM EDT from Last 3 Months or Most Recently Relevant to Health Maintenance Results * Urinalysis, Complete, with Reflex to Culture (11/17/2024 11:49 AM EDT) Color Urine Yellow [facility] Appearance Urine Clear [facility] PH 8.0 5.0 - 9.0 [facility] Glucose Urine UA Negative Negative mg/dL [facility] Urine Blood Negative Negative [facility] Specific Fulda - Urine <=1.005 1.005 - 1.025 [facility] Urine Protein Negative Neg-Trace mg/dL [facility] Urine Ketones Negative Negative mg/dL [facility] Nitrite Urine Negative Negative [facility] Leukocyte Esterase Urine Negative Negative [facility] RBC Urine 0-2 0 - 2 /HPF [facility] Urine WBC 0-5 0 - 5 /HPF [facility] Urine Squamous Epithelial Cell 0-2 0 - 2 /HPF [facility] Urine Bacteria None Seen None Seen [facility] Hyaline Casts, Urine 0-2 0 - 2 /LPF [facility] Urine 11/17/2024 11:4 9 AM EDT 11/17/2024 1:08 PM EDT Narrative [facility] - 11/17/2024 1:52 PM EDT Urine, Clean Catch us Estela Wiggins MD LAB URINE ORDERABLES Final Res ult [facility] [address] [place] [phone] * Basic Metabolic Panel (11/17/2024 11:49 AM EDT) Only the most recent of2 resultswithin the time period is included. Sodium 140 135 - 145 mmol/L [facility] Potassium 4.7 3.3 - 5.1 mmol/L [facility] Chloride 105 96 - 108 mmol/L [facility] Carbon Dioxide 28 22 - 29 mmol/L [facility] Anion Gap 12 12 - 20 [facility] Urea Nitrogen (BUN) 14 9 - 16 mg/dL [facility] Creatinine, Serum 0.84 0.5 - 1.4 mg/dL [facility] Estimated Glomerular Filt Rate >60 [facility] Comment:Chronic Kidney Disea se: Estimated GFR < 60 mL/min/1.47q5Kkwpmy Kidney Disease: Estimated GFR < 15 mL/min/1.73m2 Glucose 91 60 - 115 mg/dL [facility] Calcium 9.5 8.4 - 10.2 mg/dL [facility] Blood Venous blood specimen / Unknown 11/17/2024 11:49 AM EDT 11/17/2024 1:38 PM EDT us Estela Wiggins MD LAB BLOOD ORDERABLES Final Res ult [facility] [address] [place], [place] [phone] * Vitamin D, 25-Hydroxy, Total, Immunoassay (11/10/2024 11:56 AM EDT) Vitamin D 25-OH Total 64.0 >30 ng/mL [facility] Comment: Health Based Reference Values*< 20 ng/mL Cybyssdie98-91 ng/mL Insufficient> 30 ng/mL Sufficient*Lima PALACIOS. N Engl J Med. 2007;357:266-280There is no well-established upper level of normal vitamin Dlevels. Some laboratories use 50 ng/mL as an upper limit ofnormal. However, toxicity is patient-dependent and may occurat any level. Careful correlation with the patient'spresentation is necessary and, if there is concern forvitamin D toxicity, treatment should be consideredirrespective of the serum level.Care must be taken in interpreting Vitamin D results fromdifferent laboratories and methodologies. Published datademonstrated that results from patients undergoinghemodialysis may show a negative bias when tested withvarious automated 25-OH vitamin D assays when compared toLC-MS/MS.When testing samples from patients whose predominant form ofVitamin D is Vitamin D2, such as patients receiving VitaminD2 supplementation, results that are subtherapeutic shouldbe confirmed with another method such as LC-MS/MS. Blood Venous blood specimen / Unknown 11/10/2024 11:56 AM EDT 11/10/2024 1:08 PM EDT Zhanna Hyman LAB BLOOD ORDERABLES Final R esult Performing Organization Address [facility] Co de Phone Number [facility] [address] [place] [address] [phone] * (ABNORMAL) Albumin, Random Urine W/Creatinine (11/10/2024 11:56 AM EDT) Creatinine, Urine 58.93 mg/dL [facility] Microalbumin Urine 121.0 mg/L [facility] Microalbum Creatinine Ratio Ur 205.3(H) <30 ug/mg cr [facility] Comment:Albumin/Creatinine R atio Reference Ranges: Normal: < 30 ug/mg creatinine Microalbuminuria: 30 - 300 ug/mg creatinineClinical Albuminuria: > 300 ug/mg creatinine Urine (Urine, Random) 11/10/2024 11:56 AM EDT 11/10/2024 12:57 PM EDT us Zhanna Hyman DO LAB URINE ORDERABLES Final R esult Performing Organization Address [facility]/ZIP Co de Phone Number [facility] [address] [place] [phone] * Hepatitis C Antibody with Reflex to HCV, RNA, Quantitative, Real-Time PCR (11/10/2024 11:56 AM EDT) Hepatitis C Antibody Nonreactive Nonreactive [facility] Comment:Antibodies to HCV no t detected; does not exclude early acuteHCV infection. Blood Venous blood specimen / Unknown 11/10/2024 11:56 AM EDT 11/10/2024 1:08 PM EDT Zhanna Boogie DO LAB BLOOD ORDERABLES Final R esult Performing Organization Address [facility]/ZIP Co de Phone Number [facility] [address] [place] [phone] * RPR (Monitor) with Reflex to??Titer (11/10/2024 11:56 AM EDT) RPR (Monitor) w/Refl Titer NON-REACTI VE NON-REACT JOVAN [facility] Comment:THIS TEST WAS PERFOR MED AT:[employer] [place] [id number] NEGRETE MD Rapid Plasma Reagin Ab Titer TNP [facility] Blood Venous blood specimen / Unknown 11/10/2024 11:56 AM EDT 11/10/2024 1:04 PM EDT Zhanna Hyman DO LAB BLOOD ORDERABLES [facility] Performing Organization Address [facility] Co de Phone Number [facility] [address] [place] [phone] * HIV-1/2 Antigen and Antibodies, Fourth Generation, with Reflexes (11/10/2024 11:56 AM EDT) HIV AB/AG Nonreactive Nonreactive [facility] Comment:HIV-1 p24 Ag and/or HIV-1/HIV-2 Ab not detected.A test result that is nonreactive does not exclude thepossibility of exposure to or infection with HIV-1 and/orHIV-2. Nonreactive results in this assay for individualswith prior exposure to HIV-1 and/or HIV-2 may be due toantigen and antibody levels that are below the limit ofdetection of this assay.The [facility] HIV Ag/Ab Combo assay result andsupplemental assay results should be interpreted inconjunction with the patient's clinical presentation,history and other laboratory results. If the results areinconsistent with clinical evidence, additional testing issuggested to confirm the result. Blood Venous blood specimen / Unknown 11/10/2024 11:56 AM EDT 11/10/2024 1:08 PM EDT us Zhanna Hyman DO LAB BLOOD ORDERABLES Final R esult [facility] [address], [place] [phone] * (ABNORMAL) CBC (11/10/2024 11:56 AM EDT) White Blood Count 5.4 4.8 - 10.8 X10*3/uL [facility] Red Blood Count 3.85(L) 4.20 - 5.50 X10*6/uL [facility] Hemoglobin 12.0 12.0 - 16.0 g/dl [facility] Hematocrit 34.1(L) 37.0 - 47.0 % [facility] Mean Corpuscular Volume 88.6 80.0 - 98.0 fL [facility] Mean Corpuscular Hemoglobin 31.2 27.0 - 33.0 pg [facility] Mean Corpuscular HGB Conc 35.2(H) 31.0 - 35.0 g/dl [facility] Red Cell Distribution Width 11.7 11.0 - 16.0 % [facility] Platelet Count 212 160 - 400 X10*3/uL [facility] Mean Platelet Volume 11.8 9.4 - 12.3 fL [facility] NRBC Pct Auto 0.0 0.0 - 0.2 /100WBC [facility] NRBC Abs Auto 0.000 0.0 - 0.012 X10*3/uL [facility] Blood Venous blood specimen / Unknown 11/10/2024 11:56 AM EDT 11/10/2024 1:04 PM EDT us Zhanna Boogie DO LAB BLOOD ORDERABLES Final R esult Performing Organization Address [facility] Co de Phone Number [facility] [address] [place] [phone] * TSH (11/10/2024 11:56 AM EDT) Thyroid Stimulating Hormone 2.44 0.32 - 4.0 uIU/mL [facility] Comment:TSH 3rd Generation ( [facility]) Blood Venous blood specimen / Unknown 11/10/2024 11:56 AM EDT 11/10/2024 1:08 PM EDT us Zhanna Boogie DO LAB BLOOD ORDERABLES Final R esult Performing Organization Address [facility] Co de Phone Number [facility] [address] [place] [phone] * T4, Free (11/10/2024 11:56 AM EDT) Free T4 (Free Thyroxine) 1.16 0.71 - 1.85 ng/dL [facility] Blood Venous blood specimen / Unknown 11/10/2024 11:56 AM EDT 11/10/2024 1:08 PM EDT us Zhanna Boogie DO LAB BLOOD ORDERABLES Final R esult Performing Organization Address [facility] Co de Phone Number [facility] [address] [place] [phone] * Hemoglobin A1c (11/10/2024 11:56 AM EDT) Hemoglobin A1c 4.9 <6.0 % [facility] Comment:Hemoglobin A1C Refer ence Range Adults: 4.8 - 6.0 % Non diabetic: < 6.0 % Goal: < 7.0 %Additional Action Suggested: > 8.0 %Note: Hemoglobin A1c results are invalid for patients with abnormal amounts of HbF. Blood transfusions may impact the HbA1c concentration in the patient sample. Estimated Average Glucose 94 mg/dL [facility] Comment:eAG = Estimated ave rage glucose which is %A1C expressed asaverage glucose, using the formula of the C7T-SbbmkveOcoavqm Glucose study (ADAG), Diabetes Care, Vol.31,#8,Oct. 2007 Blood Venous blood specimen / Unknown 11/10/2024 11:56 AM EDT 11/10/2024 1:04 PM EDT Zhanna Hyman LAB BLOOD ORDERABLES Final R esult Performing Organization Address City/[facility]/ZIP Co de Phone Number [facility] [address] [place] [phone] * LH (11/10/2024 11:56 AM EDT) Lutenizing Hormone 29.8 mIU/mL [facility] Comment:Reference Range Foll icular Phase 1.9-12.5 Mid-Cycle Peak 8.7-76.3 Luteal Phase 0.5-16.9 Postmenopausal 10.0-54.7THIS TEST WAS PERFORMED AT:[employer] [place] [id number] NEGRETE MD Blood Venous blood specimen / Unknown 11/10/2024 11:56 AM EDT 11/10/2024 1:04 PM EDT Zhanna Hyman DO LAB BLOOD ORDERABLES Final R esult [facility] [address] [place] [phone] * FSH (11/10/2024 11:56 AM EDT) Follicle Stimulating Hormone 55.3 mIU/mL [facility] Comment:Reference Range Foll icular Phase 2.5-10.2 Mid-cycle Peak 3.1-17.7 Luteal Phase 1.5- 9.1 Postmenopausal 23.0-116.3THIS TEST WAS PERFORMED AT:[facility] [place] [id number] NEGRETE MD Blood Venous blood specimen / Unknown 11/10/2024 11:56 AM EDT 11/10/2024 1:04 PM EDT us Zhanna Hyman DO LAB BLOOD ORDERABLES Final R esult Performing Organization Address City/[facility]/ZIP Co de Phone Number [facility] [address] [place] [phone] * (ABNORMAL) Hepatic Function Panel (11/10/2024 11:56 AM EDT) Bilirubin, Total 0.8 0.0 - 1.0 mg/dL [facility] Bilirubin, Direct 0.2 0.0 - 0.5 mg/dL [facility] Aspartate Amino Transferase 46(H) 5 - 31 U/L [facility] Alanine Aminotransferase 46(H) 0 - 31 U/L [facility] Total Protein 7.6 6.5 - 8.0 g/dL [facility] Albumin Level 4.5 3.5 - 5.0 g/dL [facility] Alkaline Phosphatase 98 39 - 117 U/L [facility] Blood Venous blood specimen / Unknown 11/10/2024 11:56 AM EDT 11/10/2024 1:08 PM EDT us Zhanna Hyman DO LAB BLOOD ORDERABLES Final R esult Performing Organization Address City/[facility]/ZIP Co de Phone Number [facility] [address] [place] [phone] * (ABNORMAL) Lipid Panel, Standard (11/10/2024 11:56 AM EDT) Triglycerides 73 <150 mg/dL [facility] Comment:Desirable Triglyceri de: less than 150 mg/dLBorderline High Triglyceride 150-199 mg/dLHigh Triglyceride: 200-499 mg/dLVery High Triglyceride: greater than or equal to 5OO mg/dL Cholesterol 237(H) <200 mg/dL [facility] Comment:Desirable Cholestero l: less than 200 mg/dLBorderline High Cholesterol: 200-239 mg/dLHigh Cholesterol: greater than 239 mg/dL LDL Cholesterol Calculated 158(H) <100 mg/dL [facility] Comment:Desirable LDL: less than 100 mg/dLNear Optimal/Above Optimal LDL: 110- 129 mg/dLBorderline High LDL: 130-159 mg/dLHigh LDL: 160-189 mg/dLVery High LDL: greater than or equal to 190 mg/dL HDL Cholesterol 65 >40 mg/dL [facility] Comment:Desirable HDL: great er than 40 mg/dL Note: This HDL assay may give artificially low results in patients with liver disease. Blood Venous blood specimen / Unknown 11/10/2024 11:56 AM EDT 11/10/2024 1:08 PM EDT us Zhanna Hyman DO LAB BLOOD ORDERABLES Final R esult [facility] [address] [place] [phone] * BI Mammogram Screening Tomosynthesis Bilateral (06/22/2024 11:30 AM EDT) Anatomical Region Laterality Modality Breast Bilateral Mammography 06/22/2024 11:3 0 AM EDT Narrative 07/01/2024 8:39 PM EDT [facility] [address] [place] [address] Mammography Report Signed Patient: Oma Rodríguez MR#: [id number] : 1970 Acct:[id number] Age/Sex: 54 / F ADM Date: 06/22/24 Loc: HO.MAMMO Attending Dr: Zhanna Hyman DO Ordering Physician: Zhanna Hyman DO Results: 0I ncomplete: Needs Additional Imaging Evaluation Date of Service: 06/22/24 Follow Up: Additional Imagi ng Procedure(s): MM tomosynthesis screening BI Accession Number(s): [id number] cc: Zhanna Hyman DO EXAMINATION: MM SCREENING [...] OV> 07/01/242036 DD/ 1130 TD/TT: 06/22/24 1146 Janitorial Assistant: Procedure Note Donotuseinterpreter, Image - 07/01/2024 [facility] [address] [place] [address] Mammography Report Signed Patient: Lizzeth Rodríguez#: [id number] : 1970Acct:[id number] Age/Sex: 54 / FADM Date: 06/22/24 Loc: HO.MAMMO Attending Dr: Zhanna Hyman DO Ordering Physician: Zhanna Hymanults: 0I ncomplete: Needs Additional Imaging Evaluation Date of Service: 06/22/24Follow Up: Additional Imagi ng Procedure(s): MM tomosynthesis screening BI Accession Number(s): [id number] cc: Zhanna Hyman DO EXAMINATION: MM SCREENING [...] OV> 07/01/242036 DD/ 1130 TD/TT: 06/22/24 1146 Janitorial Assistant: Zhanna Hyman DO IMG BI PROCEDURES Edited Res ult - Final * Cologuard?? colon cancer screening (06/08/2023 9:58 AM EDT) Cologuard Result Negative Negative 06/13/19 24 5:06 PM EDT [facility] (CLIA #:[id number]) Comment: NEGATIVE TEST RESULT. A negative Cologuard [...] screened with both Cologuard and colonoscopy. (Juana Rutherford. et al, N Engl J Med 2014;370(14):0480-2427) The normal value (reference range) for this assay is negative. COLOGUARD RE-SCREENING RECOMMENDATION: Periodic colorectal cancer screening is an important part of preventive healthcare for asymptomatic individuals at average risk for colorectal cancer. Following a negative Cologuard result, the [place] Cancer Society and U.S. Multi-Society Task Force screening guidelines recommend a Cologuard re-screening interval of 3 years. References: [place] [employer] Guideline for Colorectal Cancer Screening: https://www.cancer.org/cancer/nvfme-zuksyx-fxvhzt/najorsfqo-houlufmjh-xkbvlxz/ac s-rec ommendations.html.; Dariel LAWS, Trung GAINES, Aubree MedinaK, Colorectal Cancer Screening: Recommendations for Physicians and Patients from the U.S. Multi-Society Task Force on Colorectal Cancer Screening , Am J Gastroenterology 2017; 112:0107-5666. TEST DESCRIPTION: Composite algorithmic analysis of stool [...] Chapa et al, N Engl J Med 2014;370(14):6321-3135.) Cologuard may produce a false negative or false positive result (no colorectal cancer or precancerous polyp present at colonoscopy follow up). A negative Cologuard test result does not guarantee the absence of CRC or advanced adenoma (pre-cancer). The current Cologuard screening interval is every 3 years. ([place] [employer] and U.S. Multi-Society Task Force). Cologuard performance data in a 10,000 patient pivotal study using colonoscopy as the reference method can be accessed at the following location: www.TrustedID/results. Additional description of the Cologuard test process, warnings and precautions can be found at www.[facility] ([facility])ogModalityrd.St[employer]ed. Stool specimen (specimen) 06/08/2023 9:58 AM EDT 06/09/2023 2:31 PM EDT Zhanna Hyman DO LAB MOLECULAR DIAGNOSTICS OR DERABLES Final Result [facility] (CLIA #:[id number]) [place] [address], * Fecal Globin by Immunochemistry (04/22/2022 12:00 AM EST) Fecal Globin By Immunochemistry SEE NOTE [facility] Comment: FECAL GLOBIN BY IMMUNOCHEMISTRY Micro Number: [id number] Test Status: Final Specimen Source: Not given Specimen Quality: Adequate Fecal Globin: Not Detected 04/22/2022 04/28/2022 10: 11 PM EST Narrative [facility] - 04/29/2022 10:56 AM EST FASTING: UNKNOWN Zhanna Hyman DO LAB BODY FLUIDS AND STOOLS O RDERABLES Final Result [facility] [address], [place] [address] [facility] [address], ([address]) [place] [address] * THINPREP TIS PAP (08/01/2021 10:31 AM [...] was manually screened according to routine procedures. 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 [facility] LMP: NONE [facility] Prev. BX: NONE [facility] Prev. PAP: NONE [facility] SOURCE: None given [facility] Statement Of Adequacy: SEE COMMENT [facility] Comment: Satisfactory for evaluation. Endocervical/transformation zone component present. Partially obscuring inflammation Age and/or menstrual status not provided 08/01/2021 10:3 1 AM EDT Zhanna Hyman DO LAB PATHOLOGY ORDERABLES Fin al Result [facility] [address] * HPV mRNA E6/E7 REFLEX TO HPV 16, 18/45 (08/01/2021 10:31 AM EDT) HPV nRNA E6/E7 Not Detected Not Detected [facility] Comment: Methodology: Escrow Processor-Mediated Amplification This assay detects E6/E7 viral messenger RNA (mRNA) from 14 high-risk HPV types (16,18,31,33,35,39,45,51,52,56,58,59,66,68). Cervical sources are required for HPV testing. If a vaginal source from a patient who has had a total hysterectomy with removal of cervix was submitted, please contact the testing laboratory for alternative testing options. 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
--- OUTSIDE RECORDS SUMMARY | 2024-11-17 14:14 | XMS_ITS | Encounter Summary ---
Author Organization [employer] Address [address] [place] [address] [address] [place] [address] Care Team Providers Care Automotive Tire Technician Name Role Phone Zhanna Hyman DO Primary Care Provider + [phone] Reason for Visit * Reason Onset Date Comments critical lab 11/10/2024 Encounter Details Date Type Department Care Team ([facility] st Contact Info) Description 11/10/2024 Telephone [facility] [address] [place], [place] [phone] Zhanna Hyman DO [address] [place] [address] critical lab Social History Tobacco Use Types Packs/Day Years [...] 10:55 AM Kira Colby [place] * Trouble falling or staying asleep, [...] 10:55 AM ADALBERTOT Kira Bello [place] * Moving or speaking so slowly [...] 10:55 AM ADALBERTOT Kira Bello MA * Patient Health Questionnaire-9 Score Answer [...] co ntrol worrying 0 11/10/2024 10:56 AM Kira Colby MA Worrying too much about diff erent things 0 11/10/2024 10:56 AM Kira Colby MA Trouble relaxing 0 11/10/2024 10:56 AM Kira Colby MA Being so restless that it is hard to sit still 0 11/10/2024 10:56 AM Kira Colby MA Becoming easily annoyed or irritable 1 11/10/2024 10:56 AM Kira Colby MA Feeling afraid as if somethi ng awful might happen 0 11/10/2024 10:56 AM Kira Colby MA CONNER-7 Total Score 1 11/10/2024 10:56 AM Kira Colby MA documented as of this encounter Miscellaneous Notes * Telephone Encounter - Angélica Pierce RN - 11/13/2024 9:36 AM EDT [facility] records checked, pt. Was admitted to [facility] and discharged with x 7 days po supplement. Clinical care coordinators have attempted to reach pt. For HDF and will reattempt if no c/b * Telephone Encounter - Alfonso Jamison RN - 11/10/2024 3:29 PM EDT TC placed to [facility] ED (Karyna) [phone] regarding below message. RN called in an expect for the patient that is coming by private car for an potassium of 2.5. Karyna verbalized understanding. * Telephone Encounter - Alfonso Jamison RN - 11/10/2024 3:09 PM EDT TC x2 placed to patient [phone] regarding below message. RN informed patient of her lab results which show potassium of 2.5 and she needs go to the ED immediately for IV potassium. RN advised patient if the ED don't give her oral potassium for home she needs to contact her PCP office and F/U with Renal. Patient reported she will be going to [facility] ED. This RN will call [facility] ED with an expect. Patient verbalized understanding. PT to F/U PRN. RN will status check patient 11/11/2024. * Telephone Encounter - Kerline Chapman - 11/10/2024 3:08 PM EDT Tc from pt requesting a call back regarding prior message Contact pt at [phone] * Telephone Encounter - Alfonso Jamison RN - 11/10/2024 2:19 PM EDT TC placed to patient [phone] regarding below message. RN left an Urgent VM message for the patient to Red team nurses. RN will re-attempt in PM. TC placed to patient EC ([place]) on HIP[employer] [phone] regarding below message. RN left an Urgent VM for the patient to CB red team nurses. RN will re-attempt in the PM. * Telephone Encounter - Maryuri Dennis RN - 11/10/2024 2:07 PM EDT TC received from Jessica at [facility] [place],reports critical Potassium level of 2.5 documented in this encounter Plan of Treatment Upcoming Encounters Date Type Department Care Team (Late st Contact Info) Description 11/24/2024 10:30 AM EDT Office Visit [facility] [address] [place], [place] [phone] Sydnee Duran MD [address] [place], [place] [phone] documented as of this encounter Visit Diagnoses Not on filedocumented in this encounter Additional Health Concerns Assessment Noted Time PHQ-9 Depression Total Score: 1 11/11/19 25 10:55 AM EDT documented as of this encounter Care Teams Automotive Tire Technician Relationship Specialty Start Date End Date Zhanna Hyman DO [address] [place], [place] [phone] PCP - General Family Medicine 11/13/20 documented as of this encounter
== END 2024-11-17 11:47 | disposition home or self-care (01) ==
LOC: HO.HHCL 11:46
PROVIDERS: PCP Family Medicine; Visit Provider General Practice
DX: E87.6 Hypokalemia (principal)
CPT/HCPCS: 36415; 80048; 81001